=== PATIENT | female | born 1995 | race Caucasian/White ===

== ENCOUNTER 2017-01-14 20:11 | Emergency (ER) | payer OTHER ==
--- NOTE | 2017-01-14 20:27 | EDM.PDOC ---
ED HPI EYE COMPLAINT - General Chief Complaint: Eye Problems Stated Complaint: PT HAS PARTICLE IN LT EYE Time Seen by Provider: 01/14/17 20:27 Source: Reports: Patient - History of Present Illness INITIAL COMMENTS - FREE TEXT/NARRATIVE: HISTORY AND PHYSICAL: History of present illness: [] Patient with foreign body sensation in her left eye, she does wear contact lenses, does not know of any precipitating injury, states she just became irritated and feels if there is foreign body sensation. She did remove her contact lenses prior to arrival, no light sensitivity double vision or actual eye pain or visual change She does have spectacles Redeye within normal limits left eye injected sclera no corneal abrasion no foreign body exam is with Wood's lamp and fluorescein lid was retracted Review of systems: As per history of present illness and below otherwise all systems reviewed and negative. Past medical history: As per history of present illness and as reviewed below otherwise noncontributory. Surgical history: As per history of present illness and as reviewed below otherwise noncontributory. Social history: No reported history of drug or alcohol abuse. Family history: As per history of present illness and as reviewed below otherwise noncontributory. Physical exam: HEENT: Atraumatic, normocephalic, pupils reactive, negative for conjunctival pallor or scleral icterus, mucous membranes moist, throat clear, neck supple, nontender, trachea midline. Lungs: Clear to auscultation, breath sounds equal bilaterally, chest nontender. Heart: S1S2, regular, negative for clicks, rubs, or JVD. Abdomen: Soft, nondistended, nontender. Negative for masses or hepatosplenomegaly. Negative for costovertebral tenderness. Pelvis: Stable nontender. Genitourinary: Deferred. Rectal: Deferred. Extremities: Atraumatic, negative for cords or calf pain. Neurovascular unremarkable. Neuro: Awake, alert, oriented. Cranial nerves II through XII unremarkable. Cerebellum unremarkable. Motor and sensory unremarkable throughout. Exam nonfocal. Diagnostics: [] Wood's lamp and fluorescein Therapeutics: [] Erythromycin ointment no TobraDex Discard contact lenses No loss contact lenses for 5 days Return if symptoms persist or worsen or followup with ophthalmology if symptoms persist or than 24-48 hours Impression: [] Conjunctivitis Definitive disposition and diagnosis as appropriate pending reevaluation and review of above. - Related Data Allergies/ADRs: Allergies No Known Allergies Allergy (Verified 01/14/17 20:22) Home Meds: Ambulatory Orders Medication Instructions Recorded Confirmed ClonazePAM [KlonoPIN] 0.5 mg PO DAILY 01/14/17 01/14/17 Past Medical History - Past Health History Medical/Surgical History: Denies Medical/Surgical History Social & Family History - Tobacco Use Smoking Status *Q: Never Smoker Years of Tobacco use: 1 Month Tobacco Last Used: 1 week Second Hand Smoke Exposure: No - Alcohol Use Days Per Week of Alcohol Use: 0 - Recreational Drug Use Recreational Drug Use: No ED ROS GENERAL - Review of Systems Review Of Systems: ROS reveals no pertinent complaints other than HPI. ED EXAM GENERAL W FULL EYE - Physical Exam Exam: See Below Course - Vital Signs Last Recorded V/S: Last Vital Signs Temp 36.9 C 01/14/17 20:22 Pulse 92 01/14/17 20:22 Resp 16 01/14/17 20:22 BP 131/89 01/14/17 20:22 Pulse Ox 98 01/14/17 20:22 - Orders/Labs/Meds Orders: Active Orders 24 hr Category Date Time Status Erythromycin Base [Erythromycin 0.5% Ophth Oint] Med 01/14/17 20:50 Once 1 gm EYEBOTH ONETIME ONE Proparacaine [Proparacaine 0.5% Ophth Soln] Med 01/14/17 20:45 Active 1 ml EYELF STAT Medication Orders Proparacaine HCl (Proparacaine 0.5% Ophth Soln) 1 ml EYELF STAT SERVANDO Last Admin: 01/14/17 20:47 Dose: 1 ml Meds: Medications Generic Name Dose Route Start Last Admin Trade Name Freq PRN Reason Stop Dose Admin Proparacaine HCl 1 ml 01/14/17 20:45 01/14/17 20:47 Proparacaine 0.5% Ophth Soln EYELF 1 ml STAT SERVANDO Administration Discontinued Medications Generic Name Dose Route Start Last Admin Trade Name Freq PRN Reason Stop Dose Admin Proparacaine HCl Confirm 01/14/17 20:38 Proparacaine 0.5% Ophth Soln Administered 01/14/17 20:39 Dose 15 ml .ROUTE .STK-MED ONE Departure - Departure Time of Disposition: 20:48 Disposition: Home, Self-Care 01 Condition: good Clinical Impression: Conjunctivitis Referrals: PCP,None [Primary Care Provider] - Forms: ED Department Discharge Additional Instructions: Medication as prescribed Return if symptoms persist or worsen despite treatment If symptoms persist more than 24-48 hours schedule with c t tech for slit lamp exam Discard current contact lenses No contact lens use for [address] [address] The following information is given to patients seen in the emergency department who are being discharged to home. This information is to outline your options for follow-up care. We provide all patients seen in our emergency department with a follow-up referral. The need for follow-up, as well as the timing and circumstances, are variable depending upon the specifics of your emergency department visit. If you don't have a primary care physician on staff, we will provide you with a referral. We always advise you to contact your personal physician following an emergency department visit to inform them of the circumstance of the visit and for follow-up with them and/or the need for any referrals to a consulting specialist. The emergency department will also refer you to a specialist when appropriate. This referral assures that you have the opportunity for follow-up care with a specialist. All of these measure are taken in an effort to provide you with optimal care, which includes your follow-up. Under all circumstances we always encourage you to contact your private physician who remains a resource for coordinating your care. When calling for follow-up care, please make the office aware that this follow-up is from your recent emergency room visit. If for any reason you are refused follow-up, please contact the [facility] emergency department at and asked to speak to the emergency department charge nurse. - My Orders Last 24 Hours: My Active Orders 01/14/17 20:45 Proparacaine [Proparacaine 0.5% Ophth Soln] 1 ml EYELF STAT 01/14/17 20:50 Erythromycin Base [Erythromycin 0.5% Ophth Oint] 1 gm EYEBOTH ONETIME ONE - Assessment/Plan Last 24 Hours: My Active Orders 01/14/17 20:45 Proparacaine [Proparacaine 0.5% Ophth Soln] 1 ml EYELF STAT 01/14/17 20:50 Erythromycin Base [Erythromycin 0.5% Ophth Oint] 1 gm EYEBOTH ONETIME ONE
[2017-01-14] MEDS ORDERED: Proparacaine 0.5% Ophth Soln 15 ML Bottle ONE (20:38)
[2017-01-14] MEDS ORDERED: Proparacaine 0.5% Ophth Soln 15 ML Bottle EYELF SCH (20:45)
[2017-01-14] MEDS ORDERED: Erythromycin Base 0.5% Ophth Oint 1 GM Tube EYEBOTH ONE (20:50)
[2017-01-14 21:32] VITALS: BP 132/84
== END 2017-01-14 21:05 | disposition home or self-care (01) ==
LOC: MW.ED 20:11
DX: H10.9 Unspecified conjunctivitis (principal); Z79.899 Other long term (current) drug therapy
CPT/HCPCS: 99283; A9270

== ENCOUNTER 2017-05-15 22:08 | Emergency (ER) | payer OTHER ==
[2017-05-15] MEDS ORDERED: Sodium Chloride 0.9% 1,000 ML IV ONE (22:48)
[2017-05-15] MEDS ORDERED: Ondansetron 4 MG/2 ML SDV IVPUSH ONE (22:48)
--- NOTE | 2017-05-15 22:52 | EDM.PDOC ---
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 She is established with Dr. griffin she has been in for initial testing just to confirm the , I believe this was a nursing visit. No fever nausea vomiting chills sweats no chest pain shortness breath headache dizziness palpitation no bowel or urine symptoms Review of systems: As per history of present illness and below otherwise all systems reviewed and negative. Past medical history: As per history of present illness and as reviewed below otherwise noncontributory. Surgical history: As per history of present illness and as reviewed below otherwise noncontributory. Social history: No reported history of drug or alcohol abuse. Family history: As per history of present illness and as reviewed below otherwise noncontributory. Physical exam: HEENT: Atraumatic, normocephalic, pupils reactive, negative for conjunctival pallor or scleral icterus, mucous membranes moist, throat clear, neck supple, nontender, trachea midline. Lungs: Clear to auscultation, breath sounds equal bilaterally, chest nontender. Heart: S1S2, regular, negative for clicks, rubs, or JVD. Abdomen: Soft, nondistended, nontender. Negative for masses or hepatosplenomegaly. Negative for costovertebral tenderness. Pelvis: Stable nontender. Genitourinary: Deferred. Rectal: Deferred. Extremities: Atraumatic, negative for cords or calf pain. Neurovascular unremarkable. Neuro: Awake, alert, oriented. Cranial nerves II through XII unremarkable. Cerebellum unremarkable. Motor and sensory unremarkable throughout. Exam nonfocal. Diagnostics: []Lab as below Ultrasound OB Therapeutics: []Follow-up with Dr. Alicia next week to repeat hCG level Impression: Hemorrhagic cyst right adnexa Threatened Cervix closed 22-year-old female IUP 5 weeks 6 days by ultrasound Blood type A positive []LMP 04/05/2018 uncertain dates Previous miscarriage at 24 weeks Definitive disposition and diagnosis as appropriate pending reevaluation and review of above. Middle Anterior Abdominal Pain Score (Numeric/FACES): 8 - Related Data Allergies Allergy/AdvReac Type Severity Reaction Status Date / Time No Known Allergies Allergy Verified 01/14/17 20:22 Home Meds: Home Meds ClonazePAM [KlonoPIN] 0.5 mg PO DAILY 01/14/17 [History] Past Medical History - Past Health History Medical/Surgical History: Denies Medical/Surgical History HEENT History: Reports: None Cardiovascular History: Reports: None Respiratory History: Reports: None Gastrointestinal History: Reports: None Genitourinary History: Reports: None RIGHT OF WAY MAN History: Reports: Musculoskeletal History: Reports: None Neurological History: Reports: None Psychiatric History: Reports: Anxiety, Depression Endocrine/Metabolic History: Reports: None Hematologic History: Reports: None Immunologic History: Reports: None Oncologic (Cancer) History: Reports: None Dermatologic History: Reports: None - Infectious Disease History Infectious Disease History: Reports: None - Past Surgical History Head Surgeries/Procedures: Reports: None Social & Family History - Family History Family Medical History: Noncontributory - Tobacco Use Smoking Status *Q: Never Smoker Years of Tobacco use: 1 Month Tobacco Last Used: 1 week Second Hand Smoke Exposure: No - Caffeine Use Caffeine Use: Reports: Coffee - Alcohol Use Days Per Week of Alcohol Use: 0 - Recreational Drug Use Recreational Drug Use: No ED ROS GENERAL - Review of Systems Review Of Systems: ROS reveals no pertinent complaints other than HPI. ED EXAM, GENERAL - Physical Exam Exam: See Below Course - Vital Signs Last Recorded V/S: Last Vital Signs Temp 36.2 C 05/15/17 23:08 Pulse 95 05/15/17 23:08 Resp 16 05/15/17 23:08 BP 136/55 L 05/15/17 23:08 Pulse Ox 95 05/15/17 23:08 - Orders/Labs/Meds Orders: Active Orders 24 hr Category Date Time Status OB 1st Tri Sgl 1st Gest [US] Stat Exams 05/15/17 23:35 Taken Labs: Laboratory Tests 05/15/17 05/15/17 05/15/17 Range/Units 22:45 23:32 23:32 WBC 11.23 H (4.0-11.0) K/uL RBC 4.90 (4.30-5.90) M/uL Hgb 14.0 (12.0-16.0) g/dL Hct 41.7 (36.0-46.0) % MCV 85.1 (80.0-98.0) fL MCH 28.6 (27.0-32.0) pg MCHC 33.6 (31.0-37.0) g/dL RDW Std Deviation 40.0 (28.0-62.0) fl RDW Coeff of Siva 13 (11.0-15.0) % Plt Count 254 (150-400) K/uL MPV 10.90 (7.40-12.00) fL Neut % (Auto) 67.5 (48.0-80.0) % Lymph % (Auto) 25.4 (16.0-40.0) % [place] % (Auto) 5.7 (0.0-15.0) % Eos % (Auto) 1.2 (0.0-7.0) % Baso % (Auto) 0.2 (0.0-1.5) % Neut # (Auto) 7.6 H (1.4-5.7) K/uL Lymph # (Auto) 2.9 H (0.6-2.4) K/uL [place] # (Auto) 0.6 (0.0-0.8) K/uL Eos # (Auto) 0.1 (0.0-0.7) K/uL Baso # (Auto) 0.0 (0.0-0.1) K/uL Nucleated RBC % 0.0 /100WBC Nucleated RBCs # 0 K/uL Sodium 138 (136-146) mmol/L Potassium 3.4 L (3.5-5.1) mmol/L Chloride 109 (98-110) mmol/L Carbon Dioxide 21 (21-31) mmol/L BUN 10 (6.0-23.0) mg/dL Creatinine 0.7 (0.6-1.5) mg/dL Est Cr Clr Drug Dosing 122.59 mL/min Estimated GFR (MDRD) > 60.0 ml/min Glucose 92 (60-110) mg/dL Calcium 9.2 (8.8-10.8) mg/dL Total Bilirubin 0.3 (0.1-1.5) mg/dL AST 25 (5-40) IU/L ALT 35 (8-54) IU/L Alkaline Phosphatase 93 (40-150) Total Protein 7.2 (6.0-8.0) g/dL Albumin 4.1 (3.5-5.0) g/dL Globulin 3.1 (2.0-3.5) g/dL Albumin/Globulin Ratio 1.3 (1.3-2.8) HCG, Quant 3715.3 mIU/mL Urine Color YELLOW Urine Appearance CLEAR Urine pH 6.0 (5.0-8.0) Ur Specific [place] 1.025 (1.001-1.035) Urine Protein NEGATIVE (NEGATIVE) mg/dL Urine Glucose (UA) NEGATIVE (NEGATIVE) mg/dL Urine Ketones NEGATIVE (NEGATIVE) mg/dL Urine Occult Blood SMALL H (NEGATIVE) Urine Nitrite NEGATIVE (NEGATIVE) Urine Bilirubin NEGATIVE (NEGATIVE) Urine Urobilinogen 0.2 (<2.0) EU/dL Ur Leukocyte Esterase NEGATIVE (NEGATIVE) Urine RBC 0-2 (0-2/HPF) Urine WBC 0-3 (0-5/HPF) Ur Epithelial Cells FEW (NONE-FEW) Amorphous Sediment LIGHT (NEGATIVE) Urine Bacteria FEW (NEGATIVE) Blood Type 05/15/17 Range/Units 23:32 WBC (4.0-11.0) K/uL RBC (4.30-5.90) M/uL Hgb (12.0-16.0) g/dL Hct (36.0-46.0) % MCV (80.0-98.0) fL MCH (27.0-32.0) pg MCHC (31.0-37.0) g/dL RDW Std Deviation (28.0-62.0) fl RDW Coeff of Siva (11.0-15.0) % Plt Count (150-400) K/uL MPV (7.40-12.00) fL Neut % (Auto) (48.0-80.0) % Lymph % (Auto) (16.0-40.0) % [place] % (Auto) (0.0-15.0) % Eos % (Auto) (0.0-7.0) % Baso % (Auto) (0.0-1.5) % Neut # (Auto) (1.4-5.7) K/uL Lymph # (Auto) (0.6-2.4) K/uL [place] # (Auto) (0.0-0.8) K/uL Eos # (Auto) (0.0-0.7) K/uL Baso # (Auto) (0.0-0.1) K/uL Nucleated RBC % /100WBC Nucleated RBCs # K/uL Sodium (136-146) mmol/L Potassium (3.5-5.1) mmol/L Chloride (98-110) mmol/L Carbon Dioxide (21-31) mmol/L BUN (6.0-23.0) mg/dL Creatinine (0.6-1.5) mg/dL Est Cr Clr Drug Dosing mL/min Estimated GFR (MDRD) ml/min Glucose (60-110) mg/dL Calcium (8.8-10.8) mg/dL Total Bilirubin (0.1-1.5) mg/dL AST (5-40) IU/L ALT (8-54) IU/L Alkaline Phosphatase (40-150) Total Protein (6.0-8.0) g/dL Albumin (3.5-5.0) g/dL Globulin (2.0-3.5) g/dL Albumin/Globulin Ratio (1.3-2.8) HCG, Quant mIU/mL Urine Color Urine Appearance Urine pH (5.0-8.0) Ur Specific [place] (1.001-1.035) Urine Protein (NEGATIVE) mg/dL Urine Glucose (UA) (NEGATIVE) mg/dL Urine Ketones (NEGATIVE) mg/dL Urine Occult Blood (NEGATIVE) Urine Nitrite (NEGATIVE) Urine Bilirubin (NEGATIVE) Urine Urobilinogen (<2.0) EU/dL Ur Leukocyte Esterase (NEGATIVE) Urine RBC (0-2/HPF) Urine WBC (0-5/HPF) Ur Epithelial Cells (NONE-FEW) Amorphous Sediment (NEGATIVE) Urine Bacteria (NEGATIVE) Blood Type A POSITIVE Meds: Medications Discontinued Medications Generic Name Dose Route Start Last Admin Trade Name Freq PRN Reason Stop Dose Admin Sodium Chloride 1,000 mls @ 999 mls/hr 05/15/17 22:48 05/15/17 23:38 Normal Saline IV 05/15/17 23:48 999 mls/hr STAT ONE Administration Morphine Sulfate 2 mg 05/16/17 00:47 Morphine IVPUSH 05/16/17 00:48 ONETIME ONE Ondansetron HCl 8 mg 05/15/17 22:48 05/15/17 23:36 Zofran IVPUSH 05/15/17 22:49 8 mg ONETIME ONE Administration Departure - Departure Time of Disposition: 01:37 Disposition: Home, Self-Care 01 Condition: Good Clinical Impression: Threatened - Discharge Information Referrals: Otoniel De Los Santos MD [Primary Care Provider] - Forms: ED Department Discharge Additional Instructions: Vaginal rest as discussed no tampons douching sexual intercourse, nothing per vagina Recommend no heavy lifting Follow-up with OB provider next week, and ER referral for Dr. Griffin will be provided to follow hCG level Return if symptoms persist or worsen or fever nausea vomiting chills sweats intractable pain or heavy bleeding develops The following information is given to patients seen in the emergency department who are being discharged to home. This information is to outline your options for follow-up care. We provide all patients seen in our emergency department with a follow-up referral. The need for follow-up, as well as the timing and circumstances, are variable depending upon the specifics of your emergency department visit. If you don't have a primary care physician on staff, we will provide you with a referral. We always advise you to contact your personal physician following an emergency department visit to inform them of the circumstance of the visit and for follow-up with them and/or the need for any referrals to a consulting specialist. The emergency department will also refer you to a specialist when appropriate. This referral assures that you have the opportunity for follow-up care with a specialist. All of these measure are taken in an effort to provide you with optimal care, which includes your follow-up. Under all circumstances we always encourage you to contact your private physician who remains a resource for coordinating your care. When calling for follow-up care, please make the office aware that this follow-up is from your recent emergency room visit. If for any reason you are refused follow-up, please contact the [facility] emergency department at and asked to speak to the emergency department charge nurse. - My Orders Last 24 Hours: My Active Orders 05/15/17 23:35 OB 1st Tri Sgl 1st Gest [US] Stat - Assessment/Plan Last 24 Hours: My Active Orders 05/15/17 23:35 OB 1st Tri Sgl 1st Gest [US] Stat
[2017-05-15 23:58] LABS: CHLORIDE,CL 109 mmol/L (98-110); SODIUM,NA 138 mmol/L (136-146)
[2017-05-16] MEDS ORDERED: Morphine 2 MG/ML Syringe IVPUSH ONE (00:47)
[2017-05-16 03:23] VITALS: BP 123/76
--- NOTE | 2017-05-16 09:46 | US ---
EXAM DATE: 05/15/17 PATIENT'S AGE: 22 Patient: JUICE STYLES Facility: [place], [place] Site Site : 1995 Study: US OB Pelvis [id number]/[id number] 1:13:47 AM Ordering Physician: Ehsan Final Report: INDICATION: Vaginal bleeding. TECHNIQUE: Ultrasound OB pelvis transvaginal. Real time ta scale imaging of the pelvis was performed. COMPARISON: None FINDINGS: Sonographic imaging demonstrates a single intrauterine gestation. No pole or heart motion identified. The gestational sac measures 12 x 6 x 9 mm with mean sac diameter of 9 mm and estimated gestational age of 5 weeks, 6 days. There is a normal appearing yolk sac. There are no gross abnormalities noted within the embryo at this early state of development. The placenta has not yet developed. The gestational sac has a normal appearance and there is no evidence of a perigestational hemorrhage. The amount of fluid within the sac appears appropriate for gestational age. The cervix is closed. The myometrium appears normal. There is a large cystic lesion in the right adnexa with layering fluid-fluid level it measures 4.7 x 4.2 cm. No significant ascites noted. IMPRESSION: 1. By the 2012 Society of Radiologists in Ultrasound consensus panel criteria, there is an early intrauterine of approximately 5 weeks, 6 days in age and is of unknown viability. Followup beta HCG and ultrasound is recommended. 2. There is a large cystic lesion in the right adnexa with layering fluid-fluid level it measures 4.7 x 4.2 cm. This may represent a hemorrhagic cyst. Followup ultrasound in 6-12 weeks is recommended. Dictated by Nima Walker MD @ 05/16/2017 1:19:44 AM Dictated by: Nima Walker MD @ 05/16/2017 01:19:56 (Electronic Signature) Report Signed by Proxy. [facility]
== END 2017-05-16 02:06 | disposition home or self-care (01) ==
LOC: MW.ED 22:08
DX: O20.0 Threatened abortion (principal); N83.8 Other noninflammatory disorders of ovary, fallopian tube and broad ligament; Z3A.01 Less than 8 weeks gestation of pregnancy
CPT/HCPCS: 76801; 80053; 81001; 84702; 85025; 86900; 86901; 96361; 96374; 99284; J2405; J7040; 99283

== ENCOUNTER 2017-07-09 17:44 | Emergency (ER) | payer OTHER ==
[2017-07-09] MEDS ORDERED: Sodium Chloride 0.9% 1,000 ML IV ONE (17:56)
[2017-07-09] MEDS ORDERED: Sodium Chloride 0.9% 2.5 ML Syringe FLUSH PRN (17:56)
[2017-07-09] MEDS ORDERED: Sodium Chloride 0.9% 10 ML Syringe FLUSH PRN (17:56)
[2017-07-09] MEDS ORDERED: Metoclopramide 10 MG/2 ML SDV IVPUSH ONE (17:57)
--- NOTE | 2017-07-09 17:59 | EDM.PDOC ---
ED HPI GENERAL MEDICAL PROBLEM <Eric Case - Last Filed: 07/09/17 20:05> - General Source of Information: Reports: Patient History Limitations: Reports: No Limitations <Maggy Pro - Last Filed: 07/10/17 06:45> - General Chief Complaint: Gastrointestinal Problem Stated Complaint: 13WEEKS/LIGHTHEADED/DIZZY/NAUSEA Time Seen by Provider: 07/09/17 17:51 - History of Present Illness INITIAL COMMENTS - FREE TEXT/NARRATIVE: History of present illness: []Patient is 13 weeks and has been vomiting several times a day. [employer] is no longer working for her she states she is now headed and dizzy. She has some upper abdominal cramping and lower abdominal cramping that she states she's had since the beginning of her and is unchanged. She denies any vaginal bleeding, fevers or chills she also has some diarrhea. Review of systems: As per history of present illness and below otherwise all systems reviewed and negative. Past medical history: As per history of present illness and as reviewed below otherwise noncontributory. Surgical history: As per history of present illness and as reviewed below otherwise noncontributory. Social history: No reported history of drug or alcohol abuse. Family history: As per history of present illness and as reviewed below otherwise noncontributory. Physical exam: General: Well developed, well nourished in NAD HEENT: Atraumatic, normocephalic, pupils reactive, negative for conjunctival pallor or scleral icterus, mucous membranes moist, throat clear, neck supple, nontender, trachea midline. Lungs: Clear to auscultation, breath sounds equal bilaterally, chest nontender. Heart: S1S2, regular, negative for clicks, rubs, or JVD. Abdomen: Soft, nondistended, nontender. Negative for masses or hepatosplenomegaly. Negative for costovertebral tenderness. Pelvis: Stable nontender. Genitourinary: Deferred. Rectal: Deferred. Extremities: Atraumatic, negative for cords or calf pain. Neurovascular unremarkable. Neuro: Awake, alert, oriented. Cranial nerves II through XII unremarkable. Cerebellum unremarkable. Motor and sensory unremarkable throughout. Exam nonfocal. Diagnostics: []OB assessed heart tones which were visualized on ultrasound showing a viable fetus Therapeutics: []Patient was hydrated and given Reglan for nausea with improvement of symptoms Impression: []Hyperemesis Plan: []Reglan increase fluids follow up with OB return if symptoms worsen or change Definitive disposition and diagnosis as appropriate pending reevaluation and review of above. (Maggy Pro) - Related Data Allergies Allergy/AdvReac Type Severity Reaction Status Date / Time latex Allergy itchiness Verified 07/09/17 17:55 Home Meds: Home Meds Metoclopramide HCl [Reglan] 10 mg PO TID PRN #20 tablet 07/09/17 [Rx] Past Medical History - Past Health History Medical/Surgical History: Denies Medical/Surgical History HEENT History: Reports: None Cardiovascular History: Reports: None Respiratory History: Reports: None Gastrointestinal History: Reports: None Genitourinary History: Reports: None ASSISTANT DIRECTOR OF FINANCIAL AID History: Reports: Musculoskeletal History: Reports: None Neurological History: Reports: None Psychiatric History: Reports: Anxiety, Depression Endocrine/Metabolic History: Reports: None Hematologic History: Reports: None Immunologic History: Reports: None Oncologic (Cancer) History: Reports: None Dermatologic History: Reports: None - Infectious Disease History Infectious Disease History: Reports: None - Past Surgical History Head Surgeries/Procedures: Reports: None <Maggy Pro - Last Filed: 07/10/17 06:45> Social & Family History - Family History Family Medical History: Noncontributory - Tobacco Use Smoking Status *Q: Never Smoker Years of Tobacco use: 1 Packs/Tins Daily: 0.2 Month Tobacco Last Used: 1 week Second Hand Smoke Exposure: No - Caffeine Use Caffeine Use: Reports: Coffee - Alcohol Use Days Per Week of Alcohol Use: 0 Number of Drinks Per Day: 0 Total Drinks Per Week: 0 - Recreational Drug Use Recreational Drug Use: No Recreational Drug Type: Reports: Marijuana/Hashish <Maggy Pro - Last Filed: 07/10/17 06:45> ED ROS GENERAL - Review of Systems Review Of Systems: ROS reveals no pertinent complaints other than HPI. <Eric Case - Last Filed: 07/09/17 20:05> ED EXAM - Physical Exam Exam: See Below <Eric Case - Last Filed: 07/09/17 20:05> Course <Eric Case - Last Filed: 07/09/17 20:05> <Maggy Pro - Last Filed: 07/10/17 06:45> - Vital Signs Text/Narrative:: Patient has complete resolution of her nausea she remains without any urinary tract infection signs or symptoms. (Eric Case) Last Recorded V/S: Last Vital Signs Temp 36.1 C 07/09/17 17:52 Pulse 72 07/09/17 20:30 Resp 20 07/09/17 20:30 BP 134/69 07/09/17 20:30 Pulse Ox 99 07/09/17 20:30 - Orders/Labs/Meds Orders: Active Orders 24 hr Category Date Time Status Saline Lock Insert [OM.PC] Stat Oth 07/09/17 17:56 Ordered Labs: Laboratory Tests 07/09/17 07/09/17 07/09/17 Range/Units 18:11 18:11 18:30 WBC 10.77 (4.0-11.0) K/uL RBC 4.72 (4.30-5.90) M/uL Hgb 13.7 (12.0-16.0) g/dL Hct 40.1 (36.0-46.0) % MCV 85.0 (80.0-98.0) fL MCH 29.0 (27.0-32.0) pg MCHC 34.2 (31.0-37.0) g/dL RDW Std Deviation 39.0 (28.0-62.0) fl RDW Coeff of Siva 13 (11.0-15.0) % Plt Count 221 (150-400) K/uL MPV 11.10 (7.40-12.00) fL Neut % (Auto) 82.8 H (48.0-80.0) % Lymph % (Auto) 12.8 L (16.0-40.0) % [place] % (Auto) 3.8 (0.0-15.0) % Eos % (Auto) 0.4 (0.0-7.0) % Baso % (Auto) 0.2 (0.0-1.5) % Neut # (Auto) 8.9 H (1.4-5.7) K/uL Lymph # (Auto) 1.4 (0.6-2.4) K/uL [place] # (Auto) 0.4 (0.0-0.8) K/uL Eos # (Auto) 0.0 (0.0-0.7) K/uL Baso # (Auto) 0.0 (0.0-0.1) K/uL Nucleated RBC % 0.0 /100WBC Nucleated RBCs # 0 K/uL Sodium 134 L (136-146) mmol/L Potassium 3.6 (3.5-5.1) mmol/L Chloride 104 (98-110) mmol/L Carbon Dioxide 22 (21-31) mmol/L BUN 5 L (6.0-23.0) mg/dL Creatinine 0.6 (0.6-1.5) mg/dL Est Cr Clr Drug Dosing 143.02 mL/min Estimated GFR (MDRD) > 60.0 ml/min Glucose 78 (60-110) mg/dL Calcium 8.8 (8.8-10.8) mg/dL Total Bilirubin 0.3 (0.1-1.5) mg/dL AST 14 (5-40) IU/L ALT 17 (8-54) IU/L Alkaline Phosphatase 121 (40-150) Total Protein 6.8 (6.0-8.0) g/dL Albumin 3.5 (3.5-5.0) g/dL Globulin 3.3 (2.0-3.5) g/dL Albumin/Globulin Ratio 1.1 L (1.3-2.8) Urine Color YELLOW Urine Appearance CLEAR Urine pH 5.5 (5.0-8.0) Ur Specific Dexter <= 1.005 (1.001-1.035) Urine Protein NEGATIVE (NEGATIVE) mg/dL Urine Glucose (UA) NEGATIVE (NEGATIVE) mg/dL Urine Ketones NEGATIVE (NEGATIVE) mg/dL Urine Occult Blood TRACE-INTACT (NEGATIVE) Urine Nitrite NEGATIVE (NEGATIVE) Urine Bilirubin NEGATIVE (NEGATIVE) Urine Urobilinogen 0.2 (<2.0) EU/dL Ur Leukocyte Esterase SMALL (NEGATIVE) Urine RBC 0-1 (0-2/HPF) Urine WBC 2-3 (0-5/HPF) Ur Epithelial Cells MANY (NONE-FEW) Urine Bacteria 1+ H (NEGATIVE) Meds: Medications Discontinued Medications Generic Name Dose Route Start Last Admin Trade Name Freq PRN Reason Stop Dose Admin Sodium Chloride 1,000 mls @ 999 mls/hr 07/09/17 17:56 10/25/17 18:16 Normal Saline IV 07/09/17 18:56 999 mls/hr .Bolus ONE Administration Metoclopramide HCl 5 mg 07/09/17 17:57 07/09/17 18:16 Reglan IVPUSH 07/09/17 17:58 5 mg ONETIME ONE Administration Sodium Chloride 10 ml 07/09/17 17:56 Saline Flush FLUSH ASDIRECTED PRN Keep Vein Open Sodium Chloride 2.5 ml 07/09/17 17:56 Saline Flush FLUSH ASDIRECTED PRN Keep Vein Open Departure - Departure Time of Disposition: 20:06 Condition: Good <EvieBrady - Last Filed: 07/09/17 20:05> <Maggy Pro - Last Filed: 07/10/17 06:45> - Departure Disposition: Home, Self-Care 01 Clinical Impression: Hyperemesis gravidarum, Second trimester - Discharge Information Prescriptions: Metoclopramide HCl [Reglan] 10 mg PO TID PRN #20 tablet PRN Reason: Nausea Instructions: Hyperemesis Gravidarum Referrals: Otoniel De Los Santos MD [Primary Care Provider] - Forms: ED Department Discharge Additional Instructions: The following information is given to patients seen in the emergency department who are being discharged to home. This information is to outline your options for follow-up care. We provide all patients seen in our emergency department with a follow-up referral. The need for follow-up, as well as the timing and circumstances, are variable depending upon the specifics of your emergency department visit. If you don't have a primary care physician on staff, we will provide you with a referral. We always advise you to contact your personal physician following an emergency department visit to inform them of the circumstance of the visit and for follow-up with them and/or the need for any referrals to a consulting specialist. The emergency department will also refer you to a specialist when appropriate. This referral assures that you have the opportunity for followup care with a specialist. All of these measure are taken in an effort to provide you with optimal care, which includes your followup. Under all circumstances we always encourage you to contact your private physician who remains a resource for coordinating your care. When calling for followup care, please make the office aware that this follow-up is from your recent emergency room visit. If for any reason you are refused follow-up, please contact the [facility] emergency department at and asked to speak to the emergency department charge nurse. Medications as prescribed push fluids follow-up ASSISTANT DIRECTOR OF FINANCIAL AID 24-48 hours return as needed as discussed - My Orders Last 24 Hours: My Active Orders 07/09/17 17:56 Saline Lock Insert [OM.PC] Stat - Assessment/Plan Last 24 Hours: My Active Orders 07/09/17 17:56 Saline Lock Insert [OM.PC] Stat
[2017-07-09 18:34] LABS: CHLORIDE,CL 104 mmol/L (98-110); SODIUM,NA 134 mmol/L (136-146)
[2017-07-09 21:54] VITALS: BP 134/69
== END 2017-07-09 20:45 | disposition home or self-care (01) ==
LOC: MW.ED 17:44
DX: O21.0 Mild hyperemesis gravidarum (principal); Z3A.13 13 weeks gestation of pregnancy
CPT/HCPCS: 36415; 80053; 81001; 85025; 96361; 96374; 99284; J2765; J7040; 99283

== ENCOUNTER 2017-08-14 10:05 | Day surgery (SDC) | payer OTHER ==
[2017-08-13 10:42] LABS: CHLORIDE,CL 109 mmol/L (98-110); SODIUM,NA 137 mmol/L (136-146)
[~2017-08-14 10:05] MED LIST: Sodium Chloride 0.9% 10 ML Syringe FLUSH PRN; Sodium Chloride 0.9% 2.5 ML Syringe FLUSH PRN
[2017-08-14] MEDS: Lactated Ringers 1,000 ML IV SCH ×2 (10:54→13:10)
--- NOTE | 2017-08-14 11:56 | PCM.PREANE ---
Preanesthetic Assessment - Anesthesia/Transfusion/Family Hx Anesthesia History: Prior Anesthesia Without Reaction Family History of Anesthesia Reaction: No Transfusion History: Prior Transfusion Without Reaction Intubation History: Unknown - Review of Systems General: No Symptoms Pulmonary: No Symptoms Cardiovascular: No Symptoms Gastrointestinal: No Symptoms Neurological: No Symptoms Other: Reports: None - Physical Assessment O2 Sat by Pulse Oximetry: 96 Respiratory Rate: 16 Vital Signs: Last Vital Signs Temp 36.7 C 08/14/17 10:54 Pulse 84 08/14/17 10:54 Resp 16 08/14/17 10:54 BP 128/61 08/14/17 10:54 Pulse Ox 96 08/14/17 10:54 Height: 1.7 m Weight: 114.759 kg ASA Class: 2 Mental Status: Alert & Oriented x3 Airway Class: Mallampati = 2 Dentition: Reports: Normal Dentition Thyro-Mental Finger Breadths: 3 Mouth Opening Finger Breadths: 2 ROM/Head Extension: Full Lungs: Clear to Auscultation, Normal Respiratory Effort Cardiovascular: Regular Rate, Regular Rhythm - Lab Values: Laboratory Last Values WBC 9.10 K/uL (4.0-11.0) 08/13/17 09:46 RBC 4.52 M/uL (4.30-5.90) 08/13/17 09:46 Hgb 13.4 g/dL (12.0-16.0) 08/13/17 09:46 Hct 38.8 % (36.0-46.0) 08/13/17 09:46 MCV 85.8 fL (80.0-98.0) 08/13/17 09:46 MCH 29.6 pg (27.0-32.0) 08/13/17 09:46 MCHC 34.5 g/dL (31.0-37.0) 08/13/17 09:46 RDW Std Deviation 41.5 fl (28.0-62.0) 08/13/17 09:46 RDW Coeff of Siva 13 % (11.0-15.0) 08/13/17 09:46 Plt Count 267 K/uL (150-400) 08/13/17 09:46 MPV 10.90 fL (7.40-12.00) 08/13/17 09:46 Nucleated RBC % 0.0 /100WBC 08/13/17 09:46 Nucleated RBCs # 0 K/uL 08/13/17 09:46 Sodium 137 mmol/L (136-146) 08/13/17 09:46 Potassium 3.8 mmol/L (3.5-5.1) 08/13/17 09:46 Chloride 109 mmol/L (98-110) 08/13/17 09:46 Carbon Dioxide 21 mmol/L (21-31) 08/13/17 09:46 BUN 5 mg/dL (6.0-23.0) L 08/13/17 09:46 Creatinine 0.6 mg/dL (0.6-1.5) 08/13/17 09:46 Est Cr Clr Drug Dosing 143.02 mL/min 08/13/17 09:46 Estimated GFR (MDRD) > 60.0 ml/min 08/13/17 09:46 Glucose 77 mg/dL (60-110) 08/13/17 09:46 Calcium 9.2 mg/dL (8.8-10.8) 08/13/17 09:46 Blood Type A POSITIVE 08/13/17 09:46 Antibody Screen NEGATIVE 08/13/17 09:46 - Allergies Allergies/Adverse Reactions: Allergies Allergy/AdvReac Type Severity Reaction Status Date / Time latex Allergy itchiness Verified 07/09/17 17:55 - Blood Blood Available: No - Anesthesia Plan Pre-Op Medication Ordered: None - Acknowledgements Anesthesia Type Planned: Spinal Pt an Appropriate Candidate for the Planned Anesthesia: Yes Alternatives and Risks of Anesthesia Discussed w Pt/Guardian: Yes Pt/Guardian Understands and Agrees with Anesthesia Plan: Yes PreAnesthesia Questionnaire - Past Health History Medical/Surgical History: Denies Medical/Surgical History HEENT History: Reports: Other (See Below) Other HEENT History: wears glasses/contacts Cardiovascular History: Reports: None Respiratory History: Reports: Asthma (mild) Gastrointestinal History: Reports: GERD Genitourinary History: Reports: None OCCASIONAL CAREGIVER History: Reports: Other OB/BYN History: hx premature delivery at 24 weeks gestation, 17 weeks pregnat at present time Musculoskeletal History: Reports: None Neurological History: Reports: Head Trauma, Migraines Psychiatric History: Reports: Anxiety, Depression Endocrine/Metabolic History: Reports: Obesity/BMI 30+ Hematologic History: Reports: Blood Transfusion(s) Immunologic History: Reports: None Oncologic (Cancer) History: Reports: None Dermatologic History: Reports: None - Infectious Disease History Infectious Disease History: Reports: None - Past Surgical History Head Surgeries/Procedures: Reports: None Cardiovascular Surgical History: Reports: Vascular Surgery (repair of lacerated right brachial artery) Other Surgical History Comment: implanon removal - SUBSTANCE USE Smoking Status *Q: Former Smoker (former light smoker) Tobacco Use Within Last Twelve Months: Cigarettes Second Hand Smoke Exposure: No Days Per Week of Alcohol Use: 0 Number of Drinks Per Day: 0 Total Drinks Per Week: 0 Recreational Drug Use History: No Recreational Drug Type: Reports: Marijuana/Hashish - HOME MEDS Home Medications: Home Meds Albuterol [IJD: Albuterol HFA] 1 - 2 puff INH ASDIRECTED PRN 08/11/17 [History] PNV95/Ferrous Fumarate/FA [ Vitamin Tablet] 1 tab PO DAILY 08/11/17 [ History] - CURRENT (IN HOUSE) MEDS Current Meds: Current Medications Lactated Ringer's (Ringers, Lactated) 1,000 mls @ 125 mls/hr IV ASDIRECTED SERVANDO Last Admin: 08/14/17 10:54 Dose: 125 mls/hr Acetaminophen 1,000 mg/ Premix 100 mls @ 400 mls/hr IV .ONETIME SERVANDO Sodium Chloride (Saline Flush) 10 ml FLUSH ASDIRECTED PRN PRN Reason: Keep Vein Open Sodium Chloride (Saline Flush) 2.5 ml FLUSH ASDIRECTED PRN PRN Reason: Keep Vein Open
[2017-08-14] MEDS ORDERED: Acetaminophen 1,000 MG in Premix Bag 1 BAG IV SCH (12:15)
[2017-08-14] MEDS ORDERED: fentaNYL 100 MCG/2 ML SDV ONE (13:50)
[2017-08-14] MEDS ORDERED: Ketorolac 30 MG/ML SDV IVPUSH ONE (14:29)
[2017-08-14] MEDS ORDERED: Morphine 4 MG/ML Syringe IVPUSH PRN (14:29)
[2017-08-14] MEDS ORDERED: Morphine 2 MG/ML Syringe IVPUSH PRN (14:29)
[2017-08-14] MEDS ORDERED: Promethazine 25 MG/ML SDV IM PRN (14:29)
[2017-08-14] MEDS ORDERED: Acetaminophen/oxyCODONE 325-5 MG Tab PO PRN ×2 (14:29)
[2017-08-14] MEDS ORDERED: Ondansetron 4 MG/2 ML SDV IVPUSH PRN (14:29)
--- NOTE | 2017-08-14 14:33 | PCM.OPNOTE ---
- General Post-Op/Procedure Note Date of Surgery/Procedure: 08/14/17 Operative Procedure(s): Bell cerclage Pre Op Diagnosis: IUP 17-18 wks. Cervical incomptance. Post-Op Diagnosis: Same Anesthesia Technique: Spinal Primary Surgeon: Otoniel MARCUS in mLs: 25 Complications: None Condition: Good
--- NOTE | 2017-08-14 14:34 | PCM.DCSUM1 ---
Discharge Summary - Discharge Data Discharge Date: 08/14/17 Discharge Disposition: Home, Self-Care 01 Condition: Good - Patient Summary/Data Operative Procedure(s) Performed: Bell cerclage - Patient Instructions Diet: Usual Diet as Tolerated Driving: Do Not Drive Showering/Bathing: May Shower Notify Provider of: Fever, Increased Pain, Nausea and/or Vomiting - Discharge Plan Home Medications: Home Meds Albuterol [IJD: Albuterol HFA] 1 - 2 puff INH ASDIRECTED PRN 08/11/17 [History] PNV95/Ferrous Fumarate/FA [ Vitamin Tablet] 1 tab PO DAILY 08/11/17 [ History] - General Info Date of Service: 08/14/17 Functional Status: Reports: Pain Controlled - Review of Systems General: Reports: No Symptoms HEENT: Reports: No Symptoms Pulmonary: Reports: No Symptoms Cardiovascular: Reports: No Symptoms Gastrointestinal: Reports: No Symptoms Genitourinary: Reports: No Symptoms Musculoskeletal: Reports: No Symptoms Skin: Reports: No Symptoms Neurological: Reports: No Symptoms Psychiatric: Reports: No Symptoms - Patient Data Vitals - Most Recent: Last Vital Signs Temp 36.7 C 08/14/17 10:54 Pulse 84 08/14/17 10:54 Resp 16 08/14/17 11:56 BP 128/61 08/14/17 10:54 Pulse Ox 96 08/14/17 11:56 Weight - Most Recent: 114.759 kg Med Orders - Current: Current Medications Lactated Ringer's (Ringers, Lactated) 1,000 mls @ 125 mls/hr IV ASDIRECTED [facility] Last Admin: 08/14/17 13:10 Dose: 125 mls/hr Acetaminophen 1,000 mg/ Premix 100 mls @ 400 mls/hr IV .ONETIME [facility] Last Admin: 08/14/17 13:08 Dose: 400 mls/hr Ketorolac Tromethamine (Toradol) 30 mg IVPUSH ONETIME ONE Stop: 08/14/17 14:30 Ketorolac Tromethamine (Toradol) 30 mg IVPUSH Q6H PRN PRN Reason: Pain (severe 7-10) Stop: 08/19/17 14:29 Morphine Sulfate (Morphine) 2 mg IVPUSH Q2H PRN PRN Reason: Pain (severe 7-10) Morphine Sulfate (Morphine) 4 mg IVPUSH Q2H PRN PRN Reason: Pain (severe 7-10) Ondansetron HCl (Zofran) 4 mg IVPUSH Q6H PRN PRN Reason: Nausea/Vomiting Oxycodone/Acetaminophen (Percocet 325-5 Mg) 1 tab PO Q4H PRN PRN Reason: Pain (moderate 4-6) Oxycodone/Acetaminophen (Percocet 325-5 Mg) 2 tab PO Q4H PRN PRN Reason: Pain (moderate 4-6) Promethazine HCl (Phenergan) 25 mg IM Q6H PRN PRN Reason: Nausea/Vomiting Sodium Chloride (Saline Flush) 10 ml FLUSH ASDIRECTED PRN PRN Reason: Keep Vein Open Sodium Chloride (Saline Flush) 2.5 ml FLUSH ASDIRECTED PRN PRN Reason: Keep Vein Open Discontinued Medications Fentanyl (Sublimaze) Confirm Administered Dose 100 mcg .ROUTE .tuulK-MED ONE Stop: 08/14/17 13:51 - Exam General: Reports: Alert, Oriented HEENT: Reports: Pupils Equal, Pupils Reactive, EOMI, Mucous Membr. Moist/[place] Neck: Reports: Supple Lungs: Reports: Clear to Auscultation, Normal Respiratory Effort Cardiovascular: Reports: Regular Rate, Regular Rhythm GI/Abdominal Exam: Normal Bowel Sounds, Soft, Non-Tender, No Organomegaly, No Distention, No Abnormal Bruit, No Mass, Pelvis Stable (Female) Exam: Normal External Exam, Normal Speculum Exam, Normal Bimanual Exam Rectal (Female) Exam: Normal Exam, Normal Rectal Tone Back Exam: Reports: Normal Inspection, Full Range of Motion Extremities: Normal Inspection, Normal Range of Motion, Non-Tender, No Pedal Edema, Normal Capillary Refill Skin: Reports: Warm, Dry, Intact Wound/Incisions: Reports: Healing Well Neurological: Reports: No New Focal Deficit Psy/Mental Status: Reports: Alert, Normal Affect, Normal Mood *Q Meaningful Use (DIS) - VTE *Q VTE Criteria *Q: - Stroke *Q Stroke Criteria *Q: - AMI *Q AMI Criteria *Q:
[2017-08-14 16:16] VITALS: BP 127/70
--- NOTE | 2017-08-14 16:19 | PCM48HPAN ---
Post Anesthesia Note - EVALUATION WITHIN 48HRS OF ANESTHETIC Vital Signs in Normal Range: Yes Patient Participated in Evaluation: Yes Respiratory Function Stable: Yes Airway Patent: Yes Cardiovascular Function Stable: Yes Hydration Status Stable: Yes Pain Control Satisfactory: Yes Nausea and Vomiting Control Satisfactory: Yes Mental Status Recovered: Yes - COMMENTS/OBSERVATIONS Free Text/Narrative:: Pt returned to Pre-OP area after procedure. She is currently ambulating in the room without difficulty.
[2017-08-14] MEDS ORDERED: Ketorolac 30 MG/ML SDV IVPUSH PRN (20:30)
--- NOTE | 2017-08-14 20:41 | OR ---
SURGEON: Otoniel De Los Santos MD DATE OF PROCEDURE: PREOPERATIVE DIAGNOSIS: IUP 17-18 weeks and history of cervical incompetence. POSTOPERATIVE DIAGNOSIS: IUP 17-18 weeks and history of cervical incompetence. TEST PERFORMED: Bell cerclage using Mersilene band. OPEN CUT EXAMINER: OR tech. ANESTHESIA: Spinal, Natasha Finley and Dr. Padilla. ESTIMATED BLOOD LOSS: Less than 25 mL. COMPLICATIONS: None. FINDING: IUP and history of cervical incompetence. INDICATION FOR SURGERY: [place] refer to the admit note. PROCEDURE IN DETAIL: The patient was brought to the OR, properly identified and after adequate level of spinal anesthesia, with a time taken out, the patient was prepped and draped in sterile fashion as usual. Straight catheter used to empty the bladder and then ring forceps applied to the anterior and posterior lips of the cervix. At the end of the cervix using Mersilene band, Bell cerclage performed in a circular manner around the cervix and then tied with a due amount of tension to close the cervix without strangulation. Once this was done, then the suture was trimmed and the procedure ended. Instrument and sponge count was correct. The patient tolerated the procedure well, went to recovery room in stable general condition. PRIMARY SURGEON: SECONDARY SURGEON: REASON OPEN CUT EXAMINER WAS NECESSARY: ROLE OF OPEN CUT EXAMINER: ARIK RUIZ /[id number]
== END 2017-08-14 16:33 | disposition home or self-care (01) ==
LOC: MW.SDS 10:05
PROVIDERS: ATTEND Obstetrics & Gynecology
DX: O34.31 Maternal care for cervical incompetence, first trimester (principal); O09.211 Supervision of pregnancy with history of pre-term labor, first trimester; O99.341 Other mental disorders complicating pregnancy, first trimester; O99.611 Diseases of the digestive system complicating pregnancy, first trimester; O99.511 Diseases of the respiratory system complicating pregnancy, first trimester; O99.211 Obesity complicating pregnancy, first trimester; F41.9 Anxiety disorder, unspecified; F32.9 Major depressive disorder, single episode, unspecified; J45.909 Unspecified asthma, uncomplicated; K21.9 Gastro-esophageal reflux disease without esophagitis; Z68.41 Body mass index [BMI] 40.0-44.9, adult; Z91.040 Latex allergy status; Z79.899 Other long term (current) drug therapy; Z87.891 Personal history of nicotine dependence; Z83.3 Family history of diabetes mellitus; Z98.890 Other specified postprocedural states; Z3A.17 17 weeks gestation of pregnancy
CPT/HCPCS: 36415; 59320; 80048; 85027; 86850; 86900; 86901; J3010; J7120; 00940

== ENCOUNTER 2017-12-26 15:14 | Inpatient (IN) | payer SELFPAY ==
[2017-12-26 18:06] LABS: CHLORIDE,CL 105 mmol/L (98-107); SODIUM,NA 137 mmol/L (136-145)
[2017-12-26] MEDS ORDERED: Sodium Chloride 0.9% 2.5 ML Syringe FLUSH PRN (19:13)
[2017-12-26] MEDS ORDERED: Carboprost Tromethamine 250 MCG/1 ML Amp IM PRN (19:13)
[2017-12-26] MEDS ORDERED: Methylergonovine 0.2 MG/1 ML Amp IM PRN (19:13)
[2017-12-26] MEDS ORDERED: Butorphanol 1 MG/ML SDV IVPUSH PRN (19:13)
[2017-12-26] MEDS ORDERED: Misoprostol 200 MCG Tab PO PRN (19:13)
[2017-12-26] MEDS ORDERED: Water For Irrigation,Sterile 1,000 ML Container IRR PRN (19:13)
[2017-12-26] MEDS ORDERED: Lidocaine 1% 50 ML MDV INJECT PRN (19:13)
[2017-12-26] MEDS ORDERED: Tranexamic Acid 1,000 MG in Sodium Chloride 0.9% 100 ML IV PRN (19:13)
[2017-12-26] MEDS ORDERED: Sodium Chloride 0.9% 10 ML Syringe FLUSH PRN (19:13)
[2017-12-26] MEDS ORDERED: Nalbuphine 10 MG/1 ML Vial IVPUSH PRN (19:13)
[2017-12-26] MEDS ORDERED: Oxytocin/0.9 % Sodium Chloride 30 UNIT/500 ML BAG IV SCH ×2 (19:15→19:30)
[2017-12-26] MEDS ORDERED: Misoprostol 25 MCG (1/4 of 100 MCG) Tab VAG PRN (19:28)
[2017-12-26] MEDS ORDERED: Terbutaline 1 MG/ML SDV SUBCUT PRN (19:28)
[2017-12-26] MEDS ORDERED: Misoprostol 25 MCG (1/4 of 100 MCG) Tab VAG ONE (19:30)
[2017-12-26] MEDS ORDERED: ceFAZolin 2 GM in Premix Bag 1 BAG IV ONE (19:40)
[2017-12-26] MEDS ORDERED: ceFAZolin 1 GM in Premix Bag 1 BAG IV SCH (19:45)
[2017-12-26] MEDS: Lactated Ringers 1,000 ML IV SCH (19:58)
[2017-12-27] MEDS: Lactated Ringers 1,000 ML IV SCH (01:28)
[2017-12-27] MEDS ORDERED: ceFAZolin 1 GM in Premix Bag 1 BAG IV SCH (04:00)
--- NOTE | 2017-12-27 06:36 | PCM.PREANE ---
Preanesthetic Assessment - Anesthesia/Transfusion/Family Hx Anesthesia History: Prior Anesthesia Without Reaction Family History of Anesthesia Reaction: No Transfusion History: Prior Transfusion Without Reaction Intubation History: Unknown - Review of Systems General: No Symptoms Pulmonary: No Symptoms Cardiovascular: No Symptoms Gastrointestinal: No Symptoms Neurological: No Symptoms Other: Reports: None (Denies any personal or family hx of bleeding or clotting problems) - Physical Assessment Height: 1.7 m Weight: 127.006 kg ASA Class: 3 Mental Status: Alert & Oriented x3 Dentition: Reports: Normal Dentition - Lab Values: Laboratory Last Values WBC 11.51 K/uL (4.0-11.0) H 12/26/17 17:07 RBC 4.16 M/uL (4.30-5.90) L 12/26/17 17:07 Hgb 12.3 g/dL (12.0-16.0) 12/26/17 17:07 Hct 36.3 % (36.0-46.0) 12/26/17 17:07 MCV 87.3 fL (80.0-98.0) 12/26/17 17:07 MCH 29.6 pg (27.0-32.0) 12/26/17 17:07 MCHC 33.9 g/dL (31.0-37.0) 12/26/17 17:07 RDW Std Deviation 41.2 fl (28.0-62.0) 12/26/17 17:07 RDW Coeff of Siva 13 % (11.0-15.0) 12/26/17 17:07 Plt Count 217 K/uL (150-400) 12/26/17 17:07 MPV 11.70 fL (7.40-12.00) 12/26/17 17:07 Neut % (Auto) 77.5 % (48.0-80.0) 12/26/17 17:07 Lymph % (Auto) 16.3 % (16.0-40.0) 12/26/17 17:07 [place] % (Auto) 5.5 % (0.0-15.0) 12/26/17 17:07 Eos % (Auto) 0.6 % (0.0-7.0) 12/26/17 17:07 Baso % (Auto) 0.1 % (0.0-1.5) 12/26/17 17:07 Neut # (Auto) 8.9 K/uL (1.4-5.7) H 12/26/17 17:07 Lymph # (Auto) 1.9 K/uL (0.6-2.4) 12/26/17 17:07 [place] # (Auto) 0.6 K/uL (0.0-0.8) 12/26/17 17:07 Eos # (Auto) 0.1 K/uL (0.0-0.7) 12/26/17 17:07 Baso # (Auto) 0.0 K/uL (0.0-0.1) 12/26/17 17:07 Nucleated RBC % 0.0 /100WBC 12/26/17 17:07 Nucleated RBCs # 0 K/uL 12/26/17 17:07 Sodium 137 mmol/L (136-145) 12/26/17 17:07 Potassium 3.9 mmol/L (3.5-5.1) 12/26/17 17:07 Chloride 105 mmol/L (98-107) 12/26/17 17:07 Carbon Dioxide 20.1 mmol/L (21.0-32.0) L 12/26/17 17:07 BUN 9 mg/dL (7.0-18.0) 12/26/17 17:07 Creatinine 0.6 mg/dL (0.6-1.0) 12/26/17 17:07 Est Cr Clr Drug Dosing 143.02 mL/min 12/26/17 17:07 Estimated GFR (MDRD) > 60.0 ml/min 12/26/17 17:07 Glucose 91 mg/dL (74-106) 12/26/17 17:07 Uric Acid 4.3 mg/dL (2.6-7.2) 12/26/17 17:07 Calcium 8.8 mg/dL (8.5-10.1) 12/26/17 17:07 Total Bilirubin 0.2 mg/dL (0.2-1.0) 12/26/17 17:07 AST 16 IU/L (15-37) 12/26/17 17:07 ALT 12 IU/L (14-63) L 12/26/17 17:07 Alkaline Phosphatase 164 U/L (46-116) H 12/26/17 17:07 Total Protein 6.6 g/dL (6.4-8.2) 12/26/17 17:07 Albumin 2.3 g/dL (3.4-5.0) L 12/26/17 17:07 Globulin 4.3 g/dL (2.0-3.5) H 12/26/17 17:07 Albumin/Globulin Ratio 0.5 (1.3-2.8) L 12/26/17 17:07 Urine Color YELLOW 12/26/17 17:00 Urine Appearance CLEAR 12/26/17 17:00 Urine pH 6.0 (5.0-8.0) 12/26/17 17:00 Ur Specific [place] >= 1.030 (1.001-1.035) 12/26/17 17:00 Urine Protein TRACE mg/dL (NEGATIVE) 12/26/17 17:00 Urine Glucose (UA) NEGATIVE mg/dL (NEGATIVE) 12/26/17 17:00 Urine Ketones TRACE mg/dL (NEGATIVE) H 12/26/17 17:00 Urine Occult Blood NEGATIVE (NEGATIVE) 12/26/17 17:00 Urine Nitrite NEGATIVE (NEGATIVE) 12/26/17 17:00 Urine Bilirubin NEGATIVE (NEGATIVE) 12/26/17 17:00 Urine Urobilinogen 0.2 EU/dL (<2.0) 12/26/17 17:00 Ur Leukocyte Esterase NEGATIVE (NEGATIVE) 12/26/17 17:00 Urine RBC 0-2 (0-2/HPF) 12/26/17 17:00 Urine WBC 0-2 (0-5/HPF) 12/26/17 17:00 Ur Epithelial Cells MODERATE (NONE-FEW) 12/26/17 17:00 Urine Bacteria FEW (NEGATIVE) 12/26/17 17:00 Membrane Rupture NEGATIVE 12/27/17 01:50 Blood Type A POSITIVE 12/26/17 20:15 Antibody Screen NEGATIVE 12/26/17 20:15 - Allergies Allergies/Adverse Reactions: Allergies Allergy/AdvReac Type Severity Reaction Status Date / Time latex Allergy itchiness Verified 11/03/17 18:11 - Acknowledgements Anesthesia Type Planned: Epidural Pt an Appropriate Candidate for the Planned Anesthesia: Yes Alternatives and Risks of Anesthesia Discussed w Pt/Guardian: Yes Pt/Guardian Understands and Agrees with Anesthesia Plan: Yes PreAnesthesia Questionnaire - Past Health History Medical/Surgical History: Denies Medical/Surgical History HEENT History: Reports: Other (See Below) Other HEENT History: wears glasses/contacts Cardiovascular History: Reports: None Respiratory History: Reports: Asthma Gastrointestinal History: Reports: GERD Genitourinary History: Reports: None [employer] History: Reports: Other OB/BYN History: hx premature delivery at 24 weeks gestation, 17 weeks pregnat at present time Musculoskeletal History: Reports: None Neurological History: Reports: Head Trauma, Migraines Psychiatric History: Reports: Anxiety, Depression Endocrine/Metabolic History: Reports: Obesity/BMI 30+ Hematologic History: Reports: Blood Transfusion(s) Immunologic History: Reports: None Oncologic (Cancer) History: Reports: None Dermatologic History: Reports: None - Infectious Disease History Infectious Disease History: Reports: None - Past Surgical History Cardiovascular Surgical History: Reports: Vascular Surgery Other Surgical History Comment: implanon removal - SUBSTANCE USE Smoking Status *Q: Former Smoker Tobacco Use Within Last Twelve Months: Cigarettes Second Hand Smoke Exposure: No Days Per Week of Alcohol Use: 0 Number of Drinks Per Day: 0 Total Drinks Per Week: 0 Recreational Drug Use History: No Recreational Drug Type: Reports: Marijuana/Hashish - HOME MEDS Home Medications: Home Meds Albuterol [IJD: Albuterol HFA] 1 - 2 puff INH ASDIRECTED PRN 08/11/17 [History] PNV95/Ferrous Fumarate/FA [ Vitamin Tablet] 1 tab PO DAILY 08/11/17 [ History] - CURRENT (IN HOUSE) MEDS Current Meds: Current Medications Butorphanol Tartrate (Stadol) 1 mg IVPUSH Q1H PRN PRN Reason: Pain Last Admin: 12/27/17 05:19 Dose: 1 mg Carboprost Tromethamine (Hemabate Ds) 250 mcg IM ASDIRECTED PRN PRN Reason: Post Hemorrhage Tranexamic Acid 1,000 mg/ (Sodium Chloride) 110 mls @ 660 mls/hr IV ONETIME PRN PRN Reason: Bleeding Lactated Ringer's (Ringers, Lactated) 1,000 mls @ 150 mls/hr IV ASDIRECTED SERVANDO Last Admin: 12/27/17 01:28 Dose: 150 mls/hr Oxytocin/Sodium Chloride (Oxytocin 30 Unit/500 Ml-Ns) 30 unit in 500 mls @ 999 mls/hr IV TITRATE SERVANDO Oxytocin/Sodium Chloride (Oxytocin 30 Unit/500 Ml-Ns) 30 unit in 500 mls @ 2 mls/hr IV TITRATE [facility]; Protocol Last Titration: 12/27/17 05:19 Dose: 2 munits/min, 2 mls/hr Cefazolin Sodium/Dextrose 1 gm (/ Premix) 50 mls @ 100 mls/hr IV Q8H SERVANDO Last Admin: 12/27/17 04:16 Dose: 100 mls/hr Lidocaine HCl (Xylocaine 1%) 50 ml INJECT .ONCE PRN PRN Reason: Laceration repair Methylergonovine Maleate (Methergine) 0.2 mg IM ASDIRECTED PRN PRN Reason: Post Hemorrhage Misoprostol (Cytotec) 200 mcg PO .ONCE PRN PRN Reason: Post Hemorrhage Misoprostol (Cytotec) 25 mcg VAG Q4H PRN PRN Reason: Cervical Ripening Nalbuphine HCl (Nubain) 10 mg IVPUSH Q1H PRN PRN Reason: Pain (severe 7-10) Sodium Chloride (Saline Flush) 10 ml FLUSH ASDIRECTED PRN PRN Reason: Keep Vein Open Sodium Chloride (Saline Flush) 2.5 ml FLUSH ASDIRECTED PRN PRN Reason: Keep Vein Open Sterile Water (Sterile Water For Irrigation) 1,000 ml IRR ASDIRECTED PRN PRN Reason: delivery Terbutaline Sulfate (Brethine) 0.25 mg SUBCUT ASDIRECTED PRN PRN Reason: Tacysystole Discontinued Medications Cefazolin Sodium/Dextrose 2 gm (/ Premix) 50 mls @ 100 mls/hr IV ONETIME ONE Stop: 12/26/17 20:09 Last Admin: 12/26/17 20:28 Dose: 100 mls/hr Cefazolin Sodium/Dextrose 1 gm (/ Premix) 50 mls @ 100 mls/hr IV Q4H [facility] Fentanyl/Bupivacaine HCl ([id number]-[id number] 2 Mcg/Ml-0.125%) Confirm Administered Dose 100 mls @ as directed EP .STK-MED ONE Stop: 12/27/17 05:47 Misoprostol (Cytotec) 25 mcg VAG ONETIME ONE Stop: 12/26/17 19:31 Last Admin: 12/26/17 20:29 Dose: 25 mcg
[2017-12-27] MEDS ORDERED: Witch Hazel Medicated Pads 40/Jar TOP PRN (10:35)
[2017-12-27] MEDS ORDERED: Acetaminophen 500 MG Tab PO PRN (10:35)
[2017-12-27] MEDS ORDERED: oxyCODONE 5 MG Tab PO PRN (10:35)
[2017-12-27] MEDS ORDERED: Ibuprofen 800 MG Tab PO PRN (10:35)
[2017-12-27] MEDS ORDERED: Docusate Sodium 100 MG Cap PO PRN (10:35)
[2017-12-27] MEDS ORDERED: Lanolin 100% Cream 7 GM Tube TOP PRN (10:35)
[2017-12-27] MEDS ORDERED: Benzocaine/Menthol 20%-0.5% Spray 78 GM Cannister TOP PRN (10:35)
[2017-12-27] MEDS ORDERED: Ibuprofen 400 MG Tab PO PRN (10:35)
[2017-12-27] MEDS ORDERED: Bisacodyl 10 MG Supp RECTAL PRN (10:35)
--- NOTE | 2017-12-27 10:38 | PCM48HPAN ---
Post Anesthesia Note - EVALUATION WITHIN 48HRS OF ANESTHETIC Vital Signs in Normal Range: Yes Patient Participated in Evaluation: Yes Respiratory Function Stable: Yes Airway Patent: Yes Cardiovascular Function Stable: Yes Hydration Status Stable: Yes Pain Control Satisfactory: Yes Nausea and Vomiting Control Satisfactory: Yes Mental Status Recovered: Yes - COMMENTS/OBSERVATIONS Free Text/Narrative:: Patient has delivered and denies any discomforts. States epidural worked well.
[2017-12-27] MEDS ORDERED: ceFAZolin 1 GM in Premix Bag 1 BAG IV ONE (12:00)
--- NOTE | 2017-12-27 17:45 | OR ---
SURGEON: Morena Tom MD DATE OF PROCEDURE: 12/27/2017 PREOPERATIVE DIAGNOSES: 1. Intrauterine at 37 weeks and 1 day. 2. Gestational hypertension. POSTOPERATIVE DIAGNOSES: 1. Intrauterine at 37 weeks and 1 day. 2. Gestational hypertension. 3. Delivered. PROCEDURES: 1. Induction of labor 2. Spontaneous vaginal delivery. 3. Manual removal of placenta. 4. Repair of perineal laceration. ANESTHESIA: Epidural. ESTIMATED BLOOD LOSS: Less than 300 mLs. COMPLICATIONS: None. DISPOSITION: Mother and baby are stable in Labor and Delivery room, bonding. FINDINGS: Male , weight 3210 g, score 8 and 9 at 1 and 5 minutes respectively. Grossly normal calcified placenta with three-vessel cord. First-degree vaginal laceration. BRIEF HISTORY: Ms Sahu is a patient of [facility], I took care of her as [facility] is covering the practice this weekend for Dr De Los Santos. She is 22-year-old G2, P-0-1-0-1, who presented at yesterday, 12/26, at 37weeks gestation with history of decreased movement and abdominal cramps. She denied vaginal bleeding, or leakage of fluid On admission to Labor and Delivery, her NST was found to be reactive and she had reported movement while she was on the monitor, but then she was incidentally found to have elevated blood pressures with SBP ranging from 140s to 150s and DBP over 90s to 100s. She denied headaches, visual disturbances, or epigastric pain. Her care was complicated with history of early labor at 24 weeks in 2016 following PPROM at 22 weeks gestation. That child, a girl is doing well. She had a prophylactic Bell cerclage placed, which was removed four days ago to presentation and was on prophylactic weekly 17-hydroxyprogesterone. which she stopped at 36 weeks gestation. Otherwise, her care was pretty uneventful with GBS positive status. Evaluation for preeclampsia was negative with normal PIH labs and trace protein on urinalysis. Physical examination was unremarkable. Biophysical NST was 6/8, -2 for breathing, and a cephalic presentation of the fetus was confirmed. Due to her elevated blood pressure, consistent gestational hypertension, induction of labor was discussed and recommended, reviewing the possible associated risks with continuing the . The benefits and risks of induction of labor were also reviewed extensively with her and she accepted to proceed the recommendation. On examination, she was 2 cm dilated, 60% effaced, station -3. She received a dose of Cytotec 25 mcg vaginally for cervical ripening, which was then followed with oxytocin titration. She also received antibiotics for the positive GBS status. After the Cytotec, she progressed to 4 cm and artificial rupture of membranes was performed after her second dose of antibiotics. Thereafter, she received epidural for pain management progressing to full dilatation and commenced active pushing. She pushed quite well bringing the baby's head down to a +4 station and was set up for delivery in modified dorsal lithotomy position. Her intrapartum blood pressures ranged between 130s to 140s over 90s to 100s, and pretty much became normotensive after she received her epidural. She did not require any intrapartum antihypertensives. heart tracing fluctuated between category 1 and category 2, but was mainly a category 1 tracing. PROCEDURE IN DETAIL: She had a spontaneous vaginal delivery of a live male infant in direct occipital anterior position, loose nuchal cord x1 was easily reduced, clear amniotic fluid at delivery. Anterior and posterior shoulders and the rest of the baby were delivered without difficulty. Baby was vigorous and cried spontaneously at . The baby was delivered onto the maternal abdomen with the nursery nurse in attendance stimulating and drying him. Delayed cord clamping was observed, and the cord was subsequently cut by the father of the baby. Cord blood and gas samples were obtained. With delivery of the , oxytocin infusion was converted to titration for active management of the third stage of labor. Spontaneous separation of the placenta did not occur, and upon examination, the placenta was found to be adherent to the anterior uterine wall, so the placenta was removed manually. The placenta was evaluated and found to be complete and intact. The uterus was explored digitally and was found to be empty. Uterine massage was performed and it was found to be well contracted below the umbilicus. Examination of the perineum revealed a first- degree laceration, which was repaired with 2-0 Vicryl and was hemostatic postrepair. The patient tolerated the procedure well. Sponge, instrument, and needle counts were correct at the end of the delivery. ADUMVIV / MODL /[id number] [facility]ITAL[facility]
[2017-12-27] MEDS: Acetaminophen 500 MG Tab PO PRN (22:29)
[2017-12-28 07:58] VITALS: BP 90/62
[2017-12-28] MEDS: Acetaminophen 500 MG Tab PO PRN (09:12)
--- NOTE | 2017-12-28 10:08 | PCM.PNPP ---
- General Info Date of Service: 12/28/17 - Patient Data Vital Signs - Most Recent: Last Vital Signs Temp 35.8 C 12/28/17 07:57 Pulse 84 12/28/17 07:57 Resp 17 12/28/17 07:57 BP 90/62 12/28/17 07:57 Pulse Ox 96 12/28/17 07:57 Weight - Most Recent: 280 lb Lab Results - Last 24 Hours: Laboratory Results - last 24 hr 12/27/17 12/28/17 Range/Units 10:01 06:15 Hgb 11.6 L (12.0-16.0) g/dL Hct 35.2 L (36.0-46.0) % Cord ABG pH 7.333 (7.18-7.38) Cord ABG Base Excess -6 (-10--2) Cord VBG pH 7.360 (7.25-7.45) Cord VBG Base Excess -7 (-10--2) Med Orders - Current: Current Medications Acetaminophen (Tylenol Extra Strength) 500 mg PO Q4H PRN PRN Reason: Pain Acetaminophen (Tylenol Extra Strength) 1,000 mg PO Q4H PRN PRN Reason: Pain Last Admin: 12/28/17 09:12 Dose: 1,000 mg Benzocaine/Menthol (Dermoplast Pain Relief 20%-0.5% Anderson) 78 gm TOP ASDIRECTED PRN PRN Reason: Perineal Comfort Measure Bisacodyl (Dulcolax) 10 mg RECTAL .ONCE PRN PRN Reason: Constipation Docusate Sodium (Colace) 100 mg PO BID PRN PRN Reason: Constipation Emollient Ointment (Lansinoh Hpa) 0 gm TOP ASDIRECTED PRN PRN Reason: Sore Nipples Ibuprofen (Motrin) 400 mg PO Q4H PRN PRN Reason: Pain Ibuprofen (Motrin) 800 mg PO Q6H PRN PRN Reason: Pain Oxycodone HCl (Oxycodone) 5 mg PO Q2H PRN PRN Reason: Pain Witch Radha (Tucks) 1 pad TOP ASDIRECTED PRN PRN Reason: comfort care Discontinued Medications Butorphanol Tartrate (Stadol) 1 mg IVPUSH Q1H PRN PRN Reason: Pain Last Admin: 12/27/17 05:19 Dose: 1 mg Carboprost Tromethamine (Hemabate Ds) 250 mcg IM ASDIRECTED PRN PRN Reason: Post Hemorrhage Tranexamic Acid 1,000 mg/ (Sodium Chloride) 110 mls @ 660 mls/hr IV ONETIME PRN PRN Reason: Bleeding Lactated Ringer's (Ringers, Lactated) 1,000 mls @ 150 mls/hr IV ASDIRECTED SERVANDO Last Admin: 12/27/17 01:28 Dose: 150 mls/hr Oxytocin/Sodium Chloride (Oxytocin 30 Unit/500 Ml-Ns) 30 unit in 500 mls @ 999 mls/hr IV TITRATE [facility] Oxytocin/Sodium Chloride (Oxytocin 30 Unit/500 Ml-Ns) 30 unit in 500 mls @ 2 mls/hr IV TITRATE [facility]; Protocol Last Titration: 12/27/17 07:35 Dose: 6 munits/min, 6 mls/hr Cefazolin Sodium/Dextrose 2 gm (/ Premix) 50 mls @ 100 mls/hr IV ONETIME ONE Stop: 12/26/17 20:09 Last Admin: 12/26/17 20:28 Dose: 100 mls/hr Cefazolin Sodium/Dextrose 1 gm (/ Premix) 50 mls @ 100 mls/hr IV Q4H SERVANDO Cefazolin Sodium/Dextrose 1 gm (/ Premix) 50 mls @ 100 mls/hr IV Q8H SERVANDO Last Admin: 12/27/17 04:16 Dose: 100 mls/hr Fentanyl/Bupivacaine HCl (Spssdvto-Vuxfx-Zt 2 Mcg/Ml-0.125%) Confirm Administered Dose 100 mls @ as directed EP .STK-MED ONE Stop: 12/27/17 05:47 Cefazolin Sodium/Dextrose 1 gm (/ Premix) 50 mls @ 100 mls/hr IV ONETIME ONE Stop: 12/27/17 12:29 Last Admin: 12/27/17 12:05 Dose: 100 mls/hr Lidocaine HCl (Xylocaine 1%) 50 ml INJECT .ONCE PRN PRN Reason: Laceration repair Methylergonovine Maleate (Methergine) 0.2 mg IM ASDIRECTED PRN PRN Reason: Post Hemorrhage Misoprostol (Cytotec) 200 mcg PO .ONCE PRN PRN Reason: Post Hemorrhage Misoprostol (Cytotec) 25 mcg VAG ONETIME ONE Stop: 12/26/17 19:31 Last Admin: 12/26/17 20:29 Dose: 25 mcg Misoprostol (Cytotec) 25 mcg VAG Q4H PRN PRN Reason: Cervical Ripening Nalbuphine HCl (Nubain) 10 mg IVPUSH Q1H PRN PRN Reason: Pain (severe 7-10) Sodium Chloride (Saline Flush) 10 ml FLUSH ASDIRECTED PRN PRN Reason: Keep Vein Open Sodium Chloride (Saline Flush) 2.5 ml FLUSH ASDIRECTED PRN PRN Reason: Keep Vein Open Sterile Water (Sterile Water For Irrigation) 1,000 ml IRR ASDIRECTED PRN PRN Reason: delivery Terbutaline Sulfate (Brethine) 0.25 mg SUBCUT ASDIRECTED PRN PRN Reason: Tacysystole - Infant Interaction Support Person: , Mother - Recovery Exam Fundal Tone: Firm Fundal Level: 1 Fingerbreadths Below Umbilicus Fundal Placement: Midline Lochia Amount: Scant Lochia Color: Rubra/Red Perineum Description: Intact, Minimal Bruising/Swelling Episiotomy/Laceration: Approximated Bladder Status: Voiding Urinary Elimination: Voided - My Orders Last 24 Hours: My Active Orders 12/27/17 10:35 Patient Status [ADT] Routine May Shower [RC] ASDIRECTED Up ad Rachelle [RC] ASDIRECTED Vital Signs [RC] PER UNIT ROUTINE Acetaminophen [Tylenol Extra Strength] 1,000 mg PO Q4H PRN Acetaminophen [Tylenol Extra Strength] 500 mg PO Q4H PRN Benzocaine/Menthol [Dermoplast Pain Relief 20%-0.5% Anderson] 78 gm TOP ASDIRECTED PRN Bisacodyl [Dulcolax] 10 mg RECTAL .ONCE PRN Docusate Sodium [Colace] 100 mg PO BID PRN Ibuprofen [Motrin] 400 mg PO Q4H PRN Ibuprofen [Motrin] 800 mg PO Q6H PRN Lanolin [Lansinoh HPA] See Dose Instructions TOP ASDIRECTED PRN Witch Radha [Tucks] 1 pad TOP ASDIRECTED PRN oxyCODONE 5 mg PO Q2H PRN Assess Lochia [WOMSER] Per Unit Routine Assess Uterine Involution [WOMSER] Per Unit Routine Breast Pump [WOMSER] Per Unit Routine Peripheral IV Discontinue [OM.PC] Routine Resuscitation Status Routine 12/27/17 10:36 Perineal Care [OM.PC] Per Unit Routine 12/27/17 Lunch Regular Diet [DIET]
--- NOTE | 2017-12-28 10:12 | PCM.PNPP ---
<MarckNajma Kapoor - Last Filed: 12/28/17 10:22> - General Info Date of Service: 12/28/17 Admission Dx/Problem (Free Text): 37 1 Induction with for gestational hypertension. Subjective Update: Patient is doing well. and supplementing with formula. Lochia WNL. Pain controlled with medications. Anticipate discharge today. Functional Status: Reports: Tolerating Diet, Ambulating, Urinating - Review of Systems General: Denies: Fever, Chills HEENT: Denies: Headaches Pulmonary: Denies: Shortness of Breath, Pleuritic Chest Pain Cardiovascular: Denies: Chest Pain, Palpitations, Lightheadedness Gastrointestinal: Denies: Nausea, Vomiting Psychiatric: Reports: No Symptoms - General Info Date of Service: 12/28/17 - Patient Data Vital Signs - Most Recent: Last Vital Signs Temp 35.8 C 12/28/17 07:57 Pulse 84 12/28/17 07:57 Resp 17 12/28/17 07:57 BP 90/62 12/28/17 07:57 Pulse Ox 96 12/28/17 07:57 Weight - Most Recent: 280 lb Lab Results - Last 24 Hours: Laboratory Results - last 24 hr 12/27/17 12/28/17 Range/Units 10:01 06:15 Hgb 11.6 L (12.0-16.0) g/dL Hct 35.2 L (36.0-46.0) % Cord ABG pH 7.333 (7.18-7.38) Cord ABG Base Excess -6 (-10--2) Cord VBG pH 7.360 (7.25-7.45) Cord VBG Base Excess -7 (-10--2) Med Orders - Current: Current Medications Acetaminophen (Tylenol Extra Strength) 500 mg PO Q4H PRN PRN Reason: Pain Acetaminophen (Tylenol Extra Strength) 1,000 mg PO Q4H PRN PRN Reason: Pain Last Admin: 12/28/17 09:12 Dose: 1,000 mg Benzocaine/Menthol (Dermoplast Pain Relief 20%-0.5% Fulda) 78 gm TOP ASDIRECTED PRN PRN Reason: Perineal Comfort Measure Bisacodyl (Dulcolax) 10 mg RECTAL .ONCE PRN PRN Reason: Constipation Docusate Sodium (Colace) 100 mg PO BID PRN PRN Reason: Constipation Emollient Ointment (Lansinoh Hpa) 0 gm TOP ASDIRECTED PRN PRN Reason: Sore Nipples Ibuprofen (Motrin) 400 mg PO Q4H PRN PRN Reason: Pain Ibuprofen (Motrin) 800 mg PO Q6H PRN PRN Reason: Pain Oxycodone HCl (Oxycodone) 5 mg PO Q2H PRN PRN Reason: Pain Witch Radha (Tucks) 1 pad TOP ASDIRECTED PRN PRN Reason: comfort care Discontinued Medications Butorphanol Tartrate (Stadol) 1 mg IVPUSH Q1H PRN PRN Reason: Pain Last Admin: 12/27/17 05:19 Dose: 1 mg Carboprost Tromethamine (Hemabate Ds) 250 mcg IM ASDIRECTED PRN PRN Reason: Post Hemorrhage Tranexamic Acid 1,000 mg/ (Sodium Chloride) 110 mls @ 660 mls/hr IV ONETIME PRN PRN Reason: Bleeding Lactated Ringer's (Ringers, Lactated) 1,000 mls @ 150 mls/hr IV ASDIRECTED SERVANDO Last Admin: 12/27/17 01:28 Dose: 150 mls/hr Oxytocin/Sodium Chloride (Oxytocin 30 Unit/500 Ml-Ns) 30 unit in 500 mls @ 999 mls/hr IV TITRATE SERVANDO Oxytocin/Sodium Chloride (Oxytocin 30 Unit/500 Ml-Ns) 30 unit in 500 mls @ 2 mls/hr IV TITRATE [facility]; Protocol Last Titration: 12/27/17 07:35 Dose: 6 munits/min, 6 mls/hr Cefazolin Sodium/Dextrose 2 gm (/ Premix) 50 mls @ 100 mls/hr IV ONETIME ONE Stop: 12/26/17 20:09 Last Admin: 12/26/17 20:28 Dose: 100 mls/hr Cefazolin Sodium/Dextrose 1 gm (/ Premix) 50 mls @ 100 mls/hr IV Q4H SERVANDO Cefazolin Sodium/Dextrose 1 gm (/ Premix) 50 mls @ 100 mls/hr IV Q8H [facility] Last Admin: 12/27/17 04:16 Dose: 100 mls/hr Fentanyl/Bupivacaine HCl (Obddtglh-Prccp-Tp 2 Mcg/Ml-0.125%) Confirm Administered Dose 100 mls @ as directed EP .STK-MED ONE Stop: 12/27/17 05:47 Cefazolin Sodium/Dextrose 1 gm (/ Premix) 50 mls @ 100 mls/hr IV ONETIME ONE Stop: 12/27/17 12:29 Last Admin: 12/27/17 12:05 Dose: 100 mls/hr Lidocaine HCl (Xylocaine 1%) 50 ml INJECT .ONCE PRN PRN Reason: Laceration repair Methylergonovine Maleate (Methergine) 0.2 mg IM ASDIRECTED PRN PRN Reason: Post Hemorrhage Misoprostol (Cytotec) 200 mcg PO .ONCE PRN PRN Reason: Post Hemorrhage Misoprostol (Cytotec) 25 mcg VAG ONETIME ONE Stop: 12/26/17 19:31 Last Admin: 12/26/17 20:29 Dose: 25 mcg Misoprostol (Cytotec) 25 mcg VAG Q4H PRN PRN Reason: Cervical Ripening Nalbuphine HCl (Nubain) 10 mg IVPUSH Q1H PRN PRN Reason: Pain (severe 7-10) Sodium Chloride (Saline Flush) 10 ml FLUSH ASDIRECTED PRN PRN Reason: Keep Vein Open Sodium Chloride (Saline Flush) 2.5 ml FLUSH ASDIRECTED PRN PRN Reason: Keep Vein Open Sterile Water (Sterile Water For Irrigation) 1,000 ml IRR ASDIRECTED PRN PRN Reason: delivery Terbutaline Sulfate (Brethine) 0.25 mg SUBCUT ASDIRECTED PRN PRN Reason: Tacysystole - Infant Interaction Infant Disposition, : in Room with Family Infant Interaction: Holding Infant Feeding: Attempted ; Nursed Fair/Poor Support Person: , Mother - Recovery Exam Fundal Tone: Firm Fundal Level: 1 Fingerbreadths Below Umbilicus Fundal Placement: Midline Lochia Amount: Scant Lochia Color: Rubra/Red Episiotomy/Laceration: Approximated Bladder Status: Voiding Urinary Elimination: Voided - Exam General: Alert, Oriented, No Acute Distress Neck: Supple Lungs: Clear to Auscultation, Normal Respiratory Effort Cardiovascular: Regular Rate, Regular Rhythm GI/Abdominal Exam: Soft, Non-Tender Extremities: Pedal Edema Skin: Warm, Dry Psy/Mental Status: Alert - Assessment Assessment:: 37 09/21 induction with for gestational hypertension. - Plan Plan:: Discharge instructions reviewed. Continue on PNV while . Pelvic rest for 6 weeks. Use OTC tylenol/ibuprofen as needed for pain. Follow-up appointment. <Morena Tom - Last Filed: 12/28/17 11:20> - Patient Data Vital Signs - Most Recent: Last Vital Signs Temp 35.8 C 12/28/17 07:57 Pulse 84 12/28/17 07:57 Resp 17 12/28/17 07:57 BP 90/62 12/28/17 07:57 Pulse Ox 96 12/28/17 07:57 Lab Results - Last 24 Hours: Laboratory Results - last 24 hr 12/28/17 Range/Units 06:15 Hgb 11.6 L (12.0-16.0) g/dL Hct 35.2 L (36.0-46.0) % Med Orders - Current: Current Medications Acetaminophen (Tylenol Extra Strength) 500 mg PO Q4H PRN PRN Reason: Pain Acetaminophen (Tylenol Extra Strength) 1,000 mg PO Q4H PRN PRN Reason: Pain Last Admin: 12/28/17 09:12 Dose: 1,000 mg Benzocaine/Menthol (Dermoplast Pain Relief 20%-0.5% Fulda) 78 gm TOP ASDIRECTED PRN PRN Reason: Perineal Comfort Measure Bisacodyl (Dulcolax) 10 mg RECTAL .ONCE PRN PRN Reason: Constipation Docusate Sodium (Colace) 100 mg PO BID PRN PRN Reason: Constipation Emollient Ointment (Lansinoh Hpa) 0 gm TOP ASDIRECTED PRN PRN Reason: Sore Nipples Ibuprofen (Motrin) 400 mg PO Q4H PRN PRN Reason: Pain Ibuprofen (Motrin) 800 mg PO Q6H PRN PRN Reason: Pain Oxycodone HCl (Oxycodone) 5 mg PO Q2H PRN PRN Reason: Pain Witch Radha (Tucks) 1 pad TOP ASDIRECTED PRN PRN Reason: comfort care Discontinued Medications Butorphanol Tartrate (Stadol) 1 mg IVPUSH Q1H PRN PRN Reason: Pain Last Admin: 12/27/17 05:19 Dose: 1 mg Carboprost Tromethamine (Hemabate Ds) 250 mcg IM ASDIRECTED PRN PRN Reason: Post Hemorrhage Tranexamic Acid 1,000 mg/ (Sodium Chloride) 110 mls @ 660 mls/hr IV ONETIME PRN PRN Reason: Bleeding Lactated Ringer's (Ringers, Lactated) 1,000 mls @ 150 mls/hr IV ASDIRECTED SEVRANDO Last Admin: 12/27/17 01:28 Dose: 150 mls/hr Oxytocin/Sodium Chloride (Oxytocin 30 Unit/500 Ml-Ns) 30 unit in 500 mls @ 999 mls/hr IV TITRATE SERVANDO Oxytocin/Sodium Chloride (Oxytocin 30 Unit/500 Ml-Ns) 30 unit in 500 mls @ 2 mls/hr IV TITRATE SERVANDO; Protocol Last Titration: 12/27/17 07:35 Dose: 6 munits/min, 6 mls/hr Cefazolin Sodium/Dextrose 2 gm (/ Premix) 50 mls @ 100 mls/hr IV ONETIME ONE Stop: 12/26/17 20:09 Last Admin: 12/26/17 20:28 Dose: 100 mls/hr Cefazolin Sodium/Dextrose 1 gm (/ Premix) 50 mls @ 100 mls/hr IV Q4H SERVANDO Cefazolin Sodium/Dextrose 1 gm (/ Premix) 50 mls @ 100 mls/hr IV Q8H SERVANDO Last Admin: 12/27/17 04:16 Dose: 100 mls/hr Fentanyl/Bupivacaine HCl (Wcmuvvlu-Vqnin-Gw 2 Mcg/Ml-0.125%) Confirm Administered Dose 100 mls @ as directed EP .STK-MED ONE Stop: 12/27/17 05:47 Cefazolin Sodium/Dextrose 1 gm (/ Premix) 50 mls @ 100 mls/hr IV ONETIME ONE Stop: 12/27/17 12:29 Last Admin: 12/27/17 12:05 Dose: 100 mls/hr Lidocaine HCl (Xylocaine 1%) 50 ml INJECT .ONCE PRN PRN Reason: Laceration repair Methylergonovine Maleate (Methergine) 0.2 mg IM ASDIRECTED PRN PRN Reason: Post Hemorrhage Misoprostol (Cytotec) 200 mcg PO .ONCE PRN PRN Reason: Post Hemorrhage Misoprostol (Cytotec) 25 mcg VAG ONETIME ONE Stop: 12/26/17 19:31 Last Admin: 12/26/17 20:29 Dose: 25 mcg Misoprostol (Cytotec) 25 mcg VAG Q4H PRN PRN Reason: Cervical Ripening Nalbuphine HCl (Nubain) 10 mg IVPUSH Q1H PRN PRN Reason: Pain (severe 7-10) Sodium Chloride (Saline Flush) 10 ml FLUSH ASDIRECTED PRN PRN Reason: Keep Vein Open Sodium Chloride (Saline Flush) 2.5 ml FLUSH ASDIRECTED PRN PRN Reason: Keep Vein Open Sterile Water (Sterile Water For Irrigation) 1,000 ml IRR ASDIRECTED PRN PRN Reason: delivery Terbutaline Sulfate (Brethine) 0.25 mg SUBCUT ASDIRECTED PRN PRN Reason: Tacysystole - Problem List & Annotations (1) Vaginal delivery SNOMED Code(s): 561068827 Code(s): O80 - ENCOUNTER FOR FULL-TERM UNCOMPLICATED DELIVERY Status: Acute Current Visit: Yes (2) Gestational [-induced] hypertension without significant proteinuria , complicating childbirth SNOMED Code(s): 94653380, 850482342 Code(s): O13.4 - GESTATNL HTN WITHOUT SIGNIFICANT PROTEIN, COMP CHILDBIRTH Status: Acute Current Visit: Yes - Problem List Review Problem List Initiated/Reviewed/Updated: Yes - My Orders Last 24 Hours: My Active Orders 12/27/17 10:35 Patient Status [ADT] Routine May Shower [RC] ASDIRECTED Up ad Rachelle [RC] ASDIRECTED Vital Signs [RC] PER UNIT ROUTINE Acetaminophen [Tylenol Extra Strength] 1,000 mg PO Q4H PRN Acetaminophen [Tylenol Extra Strength] 500 mg PO Q4H PRN Benzocaine/Menthol [Dermoplast Pain Relief 20%-0.5% Fulda] 78 gm TOP ASDIRECTED PRN Bisacodyl [Dulcolax] 10 mg RECTAL .ONCE PRN Docusate Sodium [Colace] 100 mg PO BID PRN Ibuprofen [Motrin] 400 mg PO Q4H PRN Ibuprofen [Motrin] 800 mg PO Q6H PRN Lanolin [Lansinoh HPA] See Dose Instructions TOP ASDIRECTED PRN Witch Radha [Tucks] 1 pad TOP ASDIRECTED PRN oxyCODONE 5 mg PO Q2H PRN Assess Lochia [WOMSER] Per Unit Routine Assess Uterine Involution [WOMSER] Per Unit Routine Breast Pump [WOMSER] Per Unit Routine Peripheral IV Discontinue [OM.PC] Routine Resuscitation Status Routine 12/27/17 10:36 Perineal Care [OM.PC] Per Unit Routine 12/27/17 Lunch Regular Diet [DIET] - Assessment Assessment:: Patient evaluated independently BP are stable and patient is doing well - Plan Plan:: Reviewed Preeclampsia precautions Follow up in a week for BP check at [facility]
--- NOTE | 2017-12-29 10:55 | US ---
EXAM DATE: 12/27/17 PATIENT'S AGE: 22 Patient: JUICE STYLES Facility: [place], [place] Site . Site : 1995 Study: US OB Pelvis [id number] 7:00:44 PM Ordering Physician: Filiberto Frederick Final Report: INDICATION: Hypertension and decreased movements TECHNIQUE: Limited transabdominal obstetrical ultrasound with biophysical profile. COMPARISON: None available FINDINGS: A single live intrauterine gestation is seen in cephalic presentation. measurements are not performed and anatomy is not evaluated. There is cardiac activity with a heart rate of 132 BPM. The placenta is posterior. The cervix and its relation to the inferior placental tip are not evaluated. The amniotic fluid index measures 18.6 centimeters. A biophysical profile was performed with a score of 2/2 for movement, tone and fluid volume, a score of 0/2 for breathing, and a total score of 6/8. Neither ovary is visualized. IMPRESSION: A single live intrauterine gestation. A biophysical profile score of 6/8. Dictated by Landon Moon MD @ 12/26/2017 7:05:25 PM Dictated by: Landon Moon MD @ 12/26/2017 19:05:40 ----- ADDENDUM ----- The findings were communicated to Dr. De Los Santos on 12/26/2017 at 7:11 p.m. Dictated by Landon Moon MD @ Dec 26 2017 7:21PM (Electronic Signature) Report Signed by Proxy. FCO
== END 2017-12-28 15:05 | disposition home or self-care (01) | DRG 767 ==
LOC: MW.OBCHECK 15:14 → MW.OB 15:16 → MW.OBCHECK 19:13 → OBSVTOIN 12-27 10:01 → MW.OB 12-27 16:22
PROVIDERS: ADMIT Obstetrics & Gynecology; ATTEND Obstetrics & Gynecology
PROC: 10E0XZZ Delivery of Products of Conception, External Approach (ICD-10-PCS; principal; 2017-12-27)
PROC: 10D17Z9 Manual Extraction of Products of Conception, Retained, Via Natural or Artificial Opening (ICD-10-PCS; 2017-12-27)
PROC: 3E0P7VZ Introduction of Hormone into Female Reproductive, Via Natural or Artificial Opening (ICD-10-PCS; 2017-12-27)
PROC: 3E033VJ Introduction of Other Hormone into Peripheral Vein, Percutaneous Approach (ICD-10-PCS; 2017-12-27)
PROC: 0HQ9XZZ Repair Perineum Skin, External Approach (ICD-10-PCS; 2017-12-27)
PROC: 10907ZC Drainage of Amniotic Fluid, Therapeutic from Products of Conception, Via Natural or Artificial Opening (ICD-10-PCS; 2017-12-27)
DX: O13.4 Gestational [pregnancy-induced] hypertension without significant proteinuria, complicating childbirth (principal); O70.0 First degree perineal laceration during delivery; O73.0 Retained placenta without hemorrhage; Z3A.37 37 weeks gestation of pregnancy; Z37.0 Single live birth
CPT/HCPCS: 36415; 51702; 59025; 59409; 76819; 76819-26; 80053; 81001; 82803; 84112; 84550; 85014; 85018; 85025; 86850; 86900; 86901; 88307; A9270-GY; J0595; J0690; J2590; J7120

== ENCOUNTER 2021-06-30 13:29 | Emergency (ER) | payer BC, MEDICAID ==
[2021-06-30] MEDS ORDERED: Ondansetron 4 MG/2 ML SDV IVPUSH ONE (13:48)
[2021-06-30] MEDS ORDERED: Ketorolac 30 MG/ML SDV IVPUSH ONE (13:48)
[2021-06-30] MEDS ORDERED: Sodium Chloride 0.9% 1,000 ML IV ONE (13:48)
[2021-06-30] MEDS ORDERED: LORazepam 2 MG/ML SDV IVPUSH ONE (13:48)
--- NOTE | 2021-06-30 13:51 | EDM.PDOC ---
ED HPI GENERAL MEDICAL PROBLEM - General Chief Complaint: Headache Stated Complaint: MIGRAINE,LOSS OF VISION,VOMMITING Time Seen by Provider: 06/30/21 13:40 Source of Information: Reports: Patient History Limitations: Reports: No Limitations - History of Present Illness INITIAL COMMENTS - FREE TEXT/NARRATIVE: HISTORY AND PHYSICAL: History of present illness: Patient is a 26-year-old female who presents to the emergency room with complaints of generalized migraine headache, light sensitivity, noise sensitivity and nausea. Patient states she typically does get migraine heada ches, does not describe this as the worst headache of her life. She denies any injury, trauma or falls. Patient denies any fever, chills, change in vision, syncope or near syncope. Denies any chest pain, back pain, shortness of breath or cough. Denies any GI or symptoms. Patient has been eating and drinking appropriately. No recent travel or sick contacts. Review of systems: As per history of present illness and below otherwise all systems reviewed and negative. Past medical history: As per history of present illness and as reviewed below otherwise noncontributory. Surgical history: As per history of present illness and as reviewed below otherwise noncontributory. Social history: See social history for further information Family history: As per history of present illness and as reviewed below otherwise noncontributory. Physical exam: General: Well developed and well nourished. Alert and orientated x 3. Nontoxic in appearance and in no acute distress. Vital signs are stable and have been reviewed by me. Nursing notes were reviewed. HEENT: Atraumatic, normocephalic, pupils equal and reactive bilaterally, negative for conjunctival pallor or scleral icterus, mucous membranes moist, TMs normal bilaterally, throat clear, neck supple, nontender, trachea midline. No drooling or trismus noted. No meningeal signs. No hot potato voice noted. Lungs: Clear to auscultation bilaterally. No wheezes, rales, or rhonchi. Chest nontender. Normal work of breathing, no accessory muscles used. Heart: S1S2, regular rate and rhythm without overt murmur, gallops, or rubs. No JVD. No peripheral edema Abdomen: Soft, nondistended, nontender. Normoactive bowel sounds. Negative for masses or costovertebral tenderness. Skin: Intact, warm, dry. No lesions or rashes noted. Hematologic: No petechiae or purpra. Mucosa appropriate color and normal nail bed color and refill. Extremities: Atraumatic, moves all extremities per self without difficulty or deficits, negative for cords or calf pain. Neurovascular unremarkable. Neuro: Awake, alert, oriented. Cranial nerves II through XII unremarkable. Cerebellum unremarkable. Motor and sensory unremarkable throughout. Exam nonfocal. Psychiatric: Mood and affect are appropriate. Normal thought process. Answering questions appropriately. Please note that the patient was seen and evaluated during the 2019 SARS-CoV-2 novel coronavirus pandemic period. Community viral transmission is ongoing at time of this encounter and the emergency department is operating under pandemic response procedures. Medical Decision Making: Patient is a 26-year-old female who presents to the emergency room with complaints of migraine headache. She has light sensitivity noise sensitivity, nausea and vomiting associated with this. We did discuss doing imaging, was offered-she declines. She is agreeable to IV fluid and medication. Our typical migraine cocktail has several interactions her home medications; will substitute with Ativan/Toradol/Zofran. Patient does feel improved. Vital signs are stable. I have talked with the patient about today's findings, in addition to providing specific details for plan of care. Reassessment at the time of disposition demonstrates that the patient is in no acute distress. The patient is stable for discharge, counseling was provided and we discussed in great detail signs and symptoms that would prompt them to return to the Emergency Department. Medication, follow up and supportive care measures were reviewed and discussed. Voices understanding and is agreeable to plan of care. Denies any further questions or concerns at this time. Diagnostics: Declined Therapeutics: IV fluids, Zofran, Toradol, Ativan Prescription: None Impression: Migraine headache Plan: 1. You were evaluated today on an emergent basis. Please take the remainder of the day to rest in a dark quiet space. 2. You can alternate Tylenol and ibuprofen as needed for pain and fever management. 3. We encourage you to follow up with your primary care provider and/or recommended specialist in the next few days for re-evaluation and further care/management. 4. If your symptoms should worsen, new symptoms develop or any of the signs and symptoms we discussed should arise please return to the emergency room or call 911 (if needed). Definitive disposition and diagnosis as appropriate pending reevaluation and review of above. 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 Pain Score (Numeric/FACES): 9 - Related Data Allergies Allergy/AdvReac Type Severity Reaction Status Date / Time latex Allergy itchiness Verified 06/30/21 13:41 Home Meds: Home Meds Albuterol [IJD: Albuterol HFA] 1 - 2 puff INH ASDIRECTED PRN 08/11/17 [History] ARIPiprazole [Abilify] 5 mg PO DAILY 06/30/21 [History] Escitalopram [Lexapro] 20 mg PO DAILY 06/30/21 [History] Spironolactone [Aldactone] 100 mg PO DAILY 06/30/21 [History] Past Medical History - Past Health History Medical/Surgical History: Denies Medical/Surgical History HEENT History: Reports: Other (See Below) Other HEENT History: wears glasses/contacts Cardiovascular History: Reports: Hypertension Respiratory History: Reports: Asthma Gastrointestinal History: Reports: GERD Genitourinary History: Reports: None IT INFRASTRUCTURE CONSULTANT History: Reports: Other IT INFRASTRUCTURE CONSULTANT History: hx premature delivery at 24 weeks gestation Musculoskeletal History: Reports: None Neurological History: Reports: Head Trauma, Migraines Psychiatric History: Reports: Anxiety, Depression Endocrine/Metabolic History: Reports: Obesity/BMI 30+ Hematologic History: Reports: Blood Transfusion(s) Immunologic History: Reports: None Oncologic (Cancer) History: Reports: None Dermatologic History: Reports: None - Infectious Disease History Infectious Disease History: Reports: None - Past Surgical History Head Surgeries/Procedures: Reports: None HEENT Surgical History: Reports: Oral Surgery Cardiovascular Surgical History: Reports: Vascular Surgery GI Surgical History: Reports: None Social & Family History - Family History Family Medical History: No Pertinent Family History - Tobacco Use Tobacco Use Status *Q: Never Tobacco User - Caffeine Use Caffeine Use: Reports: Coffee, Energy Drinks, Soda - Recreational Drug Use Recreational Drug Use: No ED ROS GENERAL - Review of Systems Review Of Systems: Comprehensive ROS is negative, except as noted in HPI. - Physical Exam Exam: See Below (See dictation) Course - Vital Signs Last Recorded V/S: Last Vital Signs Temp 98.5 F 06/30/21 13:44 Pulse 76 06/30/21 13:44 Resp 18 06/30/21 13:44 BP 146/87 H 06/30/21 13:44 Pulse Ox 99 06/30/21 13:44 - Orders/Labs/Meds Meds: Medications Discontinued Medications Generic Name Dose Route Start Last Admin Trade Name Jose PRN Reason Stop Dose Admin Sodium Chloride 1,000 mls @ 999 mls/hr 06/30/21 13:48 06/30/21 14:05 Normal Saline IV 06/30/21 14:48 999 mls/hr STAT ONE Administration Ketorolac Tromethamine 30 mg 06/30/21 13:48 06/30/21 14:05 Ketorolac 30 Mg/Ml Sdv IVPUSH 06/30/21 13:49 30 mg ONETIME ONE Administration Lorazepam 1 mg 06/30/21 13:48 06/30/21 14:06 Lorazepam 2 Mg/Ml Sdv IVPUSH 06/30/21 13:49 1 mg ONETIME ONE Administration Ondansetron HCl 4 mg 06/30/21 13:48 06/30/21 14:06 Ondansetron 4 Mg/2 Ml Sdv IVPUSH 06/30/21 13:49 4 mg ONETIME ONE Administration Departure - Departure Time of Disposition: 14:41 Disposition: Home, Self-Care 01 Clinical Impression: Migraine Qualifiers: Intractability: not intractable - Discharge Information Instructions: Migraine Headache, [id number] Referrals: Erendira Patel DO [Primary Care Provider] - Forms: ED Department Discharge Additional Instructions: The following information is given to patients seen in the emergency department who are being discharged to home. This information is to outline your options for follow-up care. We provide all patients seen in our emergency department with a follow-up referral. The need for follow-up, as well as the timing and circumstances, are variable depending upon the specifics of your emergency department visit. If you don't have a primary care physician on staff, we will provide you with a referral. We always advise you to contact your personal physician following an emergency department visit to inform them of the circumstance of the visit and for follow-up with them and/or the need for any referrals to a consulting specialist. The emergency department will also refer you to a specialist when appropriate. This referral assures that you have the opportunity for follow-up care with a specialist. All of these measure are taken in an effort to provide you with optimal care, which includes your follow-up. Under all circumstances we always encourage you to contact your private physic mikey who remains a resource for coordinating your care. When calling for follow- up care, please make the office aware that this follow-up is from your recent emergency room visit. If for any reason you are refused follow-up, please contact the [facility] Emergency Department at and asked to speak to the emergency department charge nurse. [facility] [address] [place] [address] [facility] [address] [place] [address] Thank you for choosing the [facility] emergency department in [place] for your medical needs today. It was a pleasure caring for you. Today you were seen in the emergency department for migraine headache 1. You were evaluated today on an emergent basis. Please take the remainder of the day to rest in a dark quiet space. Do not drive with the medications he received today may cause drowsiness. 2. You can alternate Tylenol and ibuprofen as needed for pain and fever management. 3. We encourage you to follow up with your primary care provider and/or recommended specialist in the next few days for re-evaluation and further care/management. 4. If your symptoms should worsen, new symptoms develop or any of the signs and symptoms we discussed should arise please return to the emergency room or call 911 (if needed). Sepsis Event Note (ED) - Evaluation Sepsis Screening Result: No Definite Risk - Focused Exam Vital Signs: Vital Signs Temp Pulse Resp BP Pulse Ox 06/30/21 13:44 98.5 F 76 18 146/87 H 99
[2021-06-30 15:56] VITALS: BP 135/75; PULSE 68
== END 2021-06-30 15:50 | disposition home or self-care (01) ==
LOC: MW.ED 13:29
DX: G43.909 Migraine, unspecified, not intractable, without status migrainosus (principal); I10 Essential (primary) hypertension; J45.909 Unspecified asthma, uncomplicated; E66.9 Obesity, unspecified; Z68.41 Body mass index [BMI] 40.0-44.9, adult; Z91.040 Latex allergy status; Z79.899 Other long term (current) drug therapy
CPT/HCPCS: 96374; 96375; 99283; J1885; J2060; J2405; J7030

== ENCOUNTER 2022-07-11 08:55 | Emergency (ER) | payer MEDICAID ==
[2022-07-11] MEDS ORDERED: Albuterol/Ipratropium 3.0-0.5 MG/3 ML Neb Soln ONE (09:02)
[2022-07-11] MEDS ORDERED: Albuterol/Ipratropium 3.0-0.5 MG/3 ML Neb Soln NEB STA (09:08)
[2022-07-11 09:13] VITALS: BP 131/84; PULSE 97
[2022-07-11] MEDS ORDERED: Albuterol/Ipratropium 3.0-0.5 MG/3 ML Neb Soln NEB ONE (09:36)
[2022-07-11] MEDS ORDERED: predniSONE 20 MG Tab PO STA (10:21)
[2022-07-12] MEDS ORDERED: predniSONE 20 MG Tab PO ONE ×2 (09:35→09:39)
== END 2022-07-11 11:06 | disposition home or self-care (01) ==
LOC: MW.ED 08:55
DX: J45.901 Unspecified asthma with (acute) exacerbation (principal); I10 Essential (primary) hypertension; E66.9 Obesity, unspecified; Z68.41 Body mass index [BMI] 40.0-44.9, adult; Z91.040 Latex allergy status; Z79.899 Other long term (current) drug therapy; Z86.16 Personal history of COVID-19
CPT/HCPCS: 99284; A9270; 99283; J7620-GY